=== PATIENT | female | born 1945 | race Caucasian/White ===

== ENCOUNTER 2017-07-22 10:05 | Emergency (ER) | payer MEDICARE ==
[2017-07-22] MEDS ORDERED: Morphine 4 MG/ML VIAL ONE (10:35)
--- NOTE | 2017-07-22 10:39 | RAD ---
PROCEDURE: CHEST RADIOGRAPH, 1 VIEW HISTORY: epigastric pain COMPARISON: Comparison made with chest radiograph dated 06/30/2013 FINDINGS: LUNGS: Poor inspiration with low lung volumes, minor crowded bronchovascular markings and mild bibasilar atelectasis. PLEURA: No pneumothorax or pleural fluid seen. CARDIOVASCULAR: Cardiomegaly. Aorta is ectatic and uncoiled. OSSEOUS STRUCTURES: No significant abnormalities. VISUALIZED UPPER ABDOMEN: Normal. OTHER FINDINGS: None. IMPRESSION: Poor inspiration with low lung volumes, minor crowded bronchovascular markings and mild bibasilar atelectasis.. Cardiomegaly. Ectatic uncoiled aorta.
[2017-07-22 10:53] LABS: BASO % 0.3 % (0.0-2.0); EOS % 0.7 % (0.0-4.0); HEMATOCRIT 44.2 % (34.0-47.0); LYMPH # 1.5 K/uL (1.0-4.3); LYMPH % 35.2 % (20.0-40.0); MEAN CELL VOLUME 88.1 fL (81.0-99.0); MEAN CORPUSCULAR HEMOGLOBIN 29.6 pg (27.0-31.0); MEAN CORPUSCULAR HGB CONC 33.6 g/dL (33.0-37.0); MEAN PLATELET VOLUME 9.6 fL (7.2-11.7); MONO # 0.4 K/uL (0.0-0.8); NRBC % 0.2 % (0.0-2.0); RED CELL DISTRIBUTION WIDTH 13.8 % (11.5-14.5); WHITE BLOOD COUNT 4.2 K/uL (4.8-10.8)
[2017-07-22 11:09] LABS: CHLORIDE 101 mmol/L (98-107); SODIUM 140 mmol/L (132-148)
[2017-07-22 11:10] LABS: POTASSIUM 3.6 mmol/L (3.6-5.2)
[2017-07-22 11:12] LABS: ALB/GLOB RATIO 1.1 (1.0-2.1); ALKALINE PHOSPHATASE 65 U/L (38-126); ALT/SGPT 32 U/L (9-52); AST/SGOT 25 U/L (14-36); BILIRUBIN,TOTAL 0.8 mg/dL (0.2-1.3); BLOOD UREA NITROGEN 9 mg/dL (7-17); CALCIUM 9.4 mg/dl (8.6-10.4); CARBON DIOXIDE 24 mmol/L (22-30); GFR AFRICAN-AMERICAN > 60; GLUCOSE,RANDOM 114 mg/dL (65-105); TOTAL PROTEIN 7.3 g/dL (6.3-8.3)
--- NOTE | 2017-07-22 11:28 | C.PDOC ---
History Of Present Illness 72 year old female brought to the ED by ALS with complaints of intermittent, sharp and burning epigastric pain for two days. Patient also notes nausea, diarrhea, polyuria, and tingling pain shooting down the right arm. As per EMS, she has PVCs in the field. Patient denies vomiting, fever, extremity weakness, chest pain, shortness of breath, headache, dizziness, or dysuria. Time Seen by Provider: 07/22/17 10:15 Chief Complaint (Nursing): Abdominal Pain History Per: Patient, EMS, Other History/Exam Limitations: no limitations Onset/Duration Of Symptoms: Days (2 days ), Intermittent Episodes Current Symptoms Are (Timing): Still Present Severity: Mild Location Of Pain/Discomfort: Epigastric Radiation Of Pain To:: None Quality Of Discomfort: Sharp, Burning Associated Symptoms: Nausea, Diarrhea, Other (polyuria ). denies: Fever, Chills , Vomiting Past Medical History Reviewed: Historical Data, Nursing Documentation, Vital Signs Vital Signs: Last Vital Signs Temp 97.6 F 07/22/17 15:24 Pulse 73 07/22/17 15:24 Resp 20 07/22/17 15:24 BP 119/77 07/22/17 15:24 Pulse Ox 96 07/22/17 15:24 - Medical History PMH: HTN, Hypercholesterolemia Surgical History: Cholecystectomy - [facility] Procedures TETANUS TOXOID ADMINIST (12/31/13) Family History: States: Other Other Family History: noncontributory - Social History Hx Tobacco Use: No Hx Alcohol Use: No Hx Substance Use: No - Immunization History Hx Tetanus Toxoid Vaccination: No Hx Influenza Vaccination: No (UNKNOWN) Hx Pneumococcal Vaccination: No Review Of Systems Except As Marked, All Systems Reviewed And Found Negative. Constitutional: Negative for: Fever, Chills Cardiovascular: Negative for: Chest Pain, Palpitations Respiratory: Negative for: Cough, Shortness of Breath Gastrointestinal: Positive for: Nausea, Abdominal Pain, Diarrhea. Negative for : Vomiting Genitourinary: Positive for: Other (Polyuria ). Negative for: Dysuria Neurological: Positive for: Other (tingling sensation down right arm ). Negative for: Weakness, Headache, Dizziness Physical Exam - Physical Exam Appears: Non-toxic, In Acute Distress (in mild pain ), Other (appears mildly anxious ) Skin: Warm, Dry, No Diaphoretic Eye(s): bilateral: Normal Inspection Oral Mucosa: Moist Neck: Supple Chest: Symmetrical Cardiovascular: Rhythm Irregular (occasionally irregular ) Respiratory: Normal Breath Sounds, No Rales, No Rhonchi, No Wheezing Gastrointestinal/Abdominal: Bowel Sounds, Soft, Tenderness (epigastric tenderness to palpation), No Distention, No Guarding, No Rebound, Other ((-) Delong's) Back: No CVA Tenderness Extremity: Normal ROM, No Tenderness, No Pedal Edema, No Calf Tenderness, Capillary Refill (< 2 sec all digits ), No Deformity, No Swelling Neurological/Psych: Oriented x3, Normal Speech, Normal Cognition, Normal Cranial Nerves, No Cerebellar Signs, Normal Motor, Normal Sensation ED Course And Treatment - Laboratory Results Result Diagrams: 07/22/17 10:32 07/22/17 10:32 ECG: Interpreted By Me, Viewed By Me ECG Rhythm: Sinus Rhythm ECG Interpretation: No Acute Changes Interpretation Of ECG: Sinus Ryhthm 84bpm, occasional PACs. Left axis deviation , no acute ST wave changes. Rate From EC O2 Sat by Pulse Oximetry: 97 (room air ) Pulse Ox Interpretation: Normal - Radiology CXR Interpretation: Yes: Other (Impression:Poor inspiration with low lung volumes, minor crowded bronchovascular markings and mild bibasilar atelectasis. Cardiomegaly. Ectatic uncoiled aorta. ) - Other Rad CXR X-Ray: Viewed By Me, Read By Radiologist Interpretation: Accession No. : [id number]. Patient Name / ID : DOM GUARDADO / [id number]. Exam Date : 07/22/2017 10:28:07 ( Approved ). Study Comment : Sex / Age : F / 72Y. Creator : Arben Narayanan MD. Dictator : Arben Narayanan MD. Business Banking Representative : Mold Car Pusher : Arben Narayanan MD. Approver2 : Report Date : 07/22/2017 10:37:58. My Comment : . PROCEDURE: CHEST RADIOGRAPH, 1 VIEW. HISTORY: epigastric pain. COMPARISON: Comparison made with chest radiograph dated 06/30/2013. FINDINGS: LUNGS: Poor inspiration with low lung volumes, minor crowded bronchovascular markings and mild bibasilar atelectasis. PLEURA: No pneumothorax or pleural fluid seen. CARDIOVASCULAR: Cardiomegaly. Aorta is ectatic and uncoiled. OSSEOUS STRUCTURES: No significant abnormalities. VISUALIZED UPPER ABDOMEN: Normal. OTHER FINDINGS: None. IMPRESSION: Poor inspiration with low lung volumes, minor crowded bronchovascular markings and mild bibasilar atelectasis.. Cardiomegaly. Ectatic uncoiled aorta. - CT Scan/US ct abd/pelvis Other Rad Studies (CT/US): Read By Radiologist, Radiology Report Reviewed CT/US Interpretation: Accession No. : [id number]. Patient Name / ID : DOM GUARDADO / [id number]. Exam Date : 07/22/2017 13:47:00 ( Approved ). Study Comment : Sex / Age : F / 72Y. Creator : Pretty Lane MD. Dictator : Business Banking Representative : Mold Car Pusher : Pretty Lane MD. Approver2 : Report Date : 07/22/2017 14:19:04. My Comment : . PROCEDURE: CT Abdomen and Pelvis with contrast. HISTORY: ABD PAIN, DIARRHEA. COMPARISON: CT abdomen and pelvis with contrast performed 06/30/13. TECHNIQUE: Contrast dose: 100 mL Visipaque 320. Radiation dose: Total exam DLP = 711.59 mGy-cm. This CT exam was performed using one or more of the following dose reduction techniques: Automated exposure control, adjustment of the mA and/or kV according to patient size, and/or use of iterative reconstruction technique. FINDINGS: LOWER THORAX: Bibasilar atelectasis. No visible pleural effusion or pneumothorax. Partially imaged cardiomegaly. Small hiatal hernia. LIVER: Hypoattenuation of the liver compatible with hepatic steatosis. GALLBLADDER AND BILE DUCTS: Cholecystectomy. PANCREAS: Unremarkable. SPLEEN: Unremarkable. ADRENALS: Unremarkable. KIDNEYS AND URETERS: The kidneys enhance symmetrically. No hydronephrosis or obstructing calculus identified. VASCULATURE: Scattered atherosclerotic calcifications of the aorta and branches. No aortic aneurysm. BOWEL: Stomach is nondistended. Lack of oral contrast limits evaluation for bowel pathology. Abnormal small bowel wall thickening involving portions of the duodenum and proximal jejunum. Correlate clinically for infectious or inflammatory etiologies. Bowel loops appear within normal limits of caliber without evidence of obstruction. APPENDIX: The appendix appears within normal limits of caliber. No secondary signs of acute appendicitis. PERITONEUM: No significant free fluid. No definite free air. LYMPH NODES: No bulky adenopathy. BLADDER: Thick-walled urinary bladder may be exaggerated by under distension. REPRODUCTIVE: Uterus is present. BONES: Degenerative changes of the spine. OTHER FINDINGS: None. IMPRESSION: Abnormal small bowel wall thickening involving portions of the duodenum and proximal jejunum. Correlate clinically for infectious or inflammatory etiologies. Hepatic steatosis. Cholecystectomy. Partially imaged cardiomegaly. Additional findings as above. Progress Note: Blood work, EKG, UA, CXr and CT abd/pelvis ordered and reviewed. Patient given IV Morphine, IV zofran. Reevaluation Time: 15:00 Reassessment Condition: Improved (On reassessment, patient is resting comfortably and states she is feeling better and wants to go home. On exam, abdomen is soft and nontender. CT scan shows some thickening of duodenum/ proximal jejunum. In light of pain and diarrhea, will treat as infectious with Cipro and Flagyl. Patient also given Rxs for zofran and pepcid. She denies CP/ SOB/palpitations, is well appearing, with normal vitals. Patient instructed to follow up with PMD/clinic in 1-2 days, and understands she should return to ED if symptoms worsen.) Disposition Counseled Patient/Family Regarding: Studies Performed, Diagnosis, Need For Followup, Rx Given - Disposition Referrals: Ross Barker MD [Staff Provider] - Renaldo Miller MD [Staff Provider] - Disposition: HOME/ ROUTINE Disposition Time: 15:00 Condition: STABLE Additional Instructions: SEGUIMIENTO CON KAUFMAN DOCTOR EN 1-2 NUNN, Y CON CARDIOLOGA DENTRO DE 1 SEMANA UTILICE MINA MEDIDAS DE LA HIPERTENSIN CADA DIARIO DEVUELVA A LA KRISTA DE EMERGENCIA SI LOS SNTOMAS EMPEORARAN Prescriptions: Ciprofloxacin [Cipro] 1 tab PO BID #14 tab Famotidine [Pepcid] 20 mg PO BID PRN #15 tab PRN Reason: abdominal metroNIDAZOLE [Flagyl] 500 mg PO TID #21 tab Ondansetron [Zofran Odt] 4 mg PO Q8 PRN #10 odt PRN Reason: Nausea/Vomiting Instructions: Acute Diarrhea (ED) Forms: [employer] (Sami) - POA Present On Arrival: None - Clinical Impression Clinical Impression: Diarrhea, Abdominal pain, Duodenitis - Scribe Statement The provider has reviewed the documentation as recorded by the Scribe Laura Santiago All medical record entries made by the Scribe were at my direction and personally dictated by me. I have reviewed the chart and agree that the record accurately reflects my personal performance of the history, physical exam, medical decision making, and the department course for this patient. I have also personally directed, reviewed, and agree with the discharge instructions and disposition.
[2017-07-22 12:37] LABS: RBC URINE < 1 /hpf (0-3); URINE BILIRUBIN NEGATIVE (NEGATIVE); URINE BLOOD NEGATIVE (NEGATIVE); URINE COLOR Yellow (YELLOW); URINE GLUCOSE (UA) NORMAL (Normal); URINE KETONE NEGATIVE (NEGATIVE); URINE LEUKOCYTE ESTERASE NEG Leu/uL (Negative); URINE PROTEIN NEGATIVE (NEGATIVE); URINE UROBILINOGEN NORMAL mg/dL (0.2-1.0); WBC URINE 2 /hpf (0-5)
[2017-07-22] MEDS ORDERED: Iodixanol 320 MG/ML 100 ML BOTTLE IV ONE (13:40)
--- NOTE | 2017-07-22 14:20 | CT ---
PROCEDURE: CT Abdomen and Pelvis with contrast HISTORY: ABD PAIN, DIARRHEA COMPARISON: CT abdomen and pelvis with contrast performed 06/30/13 TECHNIQUE: Contrast dose: 100 mL Visipaque 320 Radiation dose: Total exam DLP = 711.59 mGy-cm. This CT exam was performed using one or more of the following dose reduction techniques: Automated exposure control, adjustment of the mA and/or kV according to patient size, and/or use of iterative reconstruction technique. FINDINGS: LOWER THORAX: Bibasilar atelectasis. No visible pleural effusion or pneumothorax. Partially imaged cardiomegaly. Small hiatal hernia. LIVER: Hypoattenuation of the liver compatible with hepatic steatosis. GALLBLADDER AND BILE DUCTS: Cholecystectomy. PANCREAS: Unremarkable. SPLEEN: Unremarkable. ADRENALS: Unremarkable. KIDNEYS AND URETERS: The kidneys enhance symmetrically. No hydronephrosis or obstructing calculus identified. VASCULATURE: Scattered atherosclerotic calcifications of the aorta and branches. No aortic aneurysm. BOWEL: Stomach is nondistended. Lack of oral contrast limits evaluation for bowel pathology. Abnormal small bowel wall thickening involving portions of the duodenum and proximal jejunum. Correlate clinically for infectious or inflammatory etiologies. Bowel loops appear within normal limits of caliber without evidence of obstruction. APPENDIX: The appendix appears within normal limits of caliber. No secondary signs of acute appendicitis. PERITONEUM: No significant free fluid. No definite free air. LYMPH NODES: No bulky adenopathy. BLADDER: Thick-walled urinary bladder may be exaggerated by under distension. REPRODUCTIVE: Uterus is present. BONES: Degenerative changes of the spine. OTHER FINDINGS: None. IMPRESSION: Abnormal small bowel wall thickening involving portions of the duodenum and proximal jejunum. Correlate clinically for infectious or inflammatory etiologies. Hepatic steatosis. Cholecystectomy. Partially imaged cardiomegaly. Additional findings as above.
[2017-07-22 15:25] VITALS: BP 119/77; PULSE 73; RESP 20; TEMP 97.6
--- NOTE | 2017-07-24 11:47 | CARD ---
APPROVED REPORT EKG Measurement Heart [id number] <Conclusion> Sinus rhythm with frequent and consecutive premature ventricular complexes and premature atrial complexes Possible Left atrial enlargement Left ventricular hypertrophy Prolonged QT Abnormal ECG
[2017-07-26 11:12] VITALS: O2SAT 97
== END 2017-07-22 15:26 | disposition home or self-care (01) ==
LOC: C.ER 10:05
DX: K29.80 Duodenitis without bleeding (principal); R19.7 Diarrhea, unspecified; R10.13 Epigastric pain; I10 Essential (primary) hypertension; E78.00 Pure hypercholesterolemia, unspecified
CPT/HCPCS: 71010; 74177; 80053; 81001; 82550; 82553; 83880; 84484; 85025; 85610; 85730; 87086; 93005; 96374; 96375; 99284; J2270; J2405; J2765; Q9967

== ENCOUNTER 2017-12-04 08:56 | Day surgery (SDC) | payer MEDICARE ==
[2017-12-04 10:01] LABS: HEMOGLOBIN 15.3 g/dL (11.0-16.0); MEAN CORPUSCULAR HEMOGLOBIN 30.3 pg (27.0-31.0); MEAN CORPUSCULAR HGB CONC 33.5 g/dL (33.0-37.0); MEAN PLATELET VOLUME 9.7 fL (7.2-11.7); RBC 5.05 Mil/uL (3.80-5.20); RED CELL DISTRIBUTION WIDTH 13.6 % (11.5-14.5); WHITE BLOOD COUNT 5.8 K/uL (4.8-10.8)
[2017-12-04 10:05] LABS: MEAN CELL VOLUME 90.5 fL (81.0-99.0)
[2017-12-04 10:08] LABS: PROTHROMBIN TIME 10.8 SECONDS (9.7-12.2)
[2017-12-04 11:20] LABS: BLOOD UREA NITROGEN 20 mg/dL (7-17); CALCIUM 8.5 mg/dl (8.6-10.4); GFR AFRICAN-AMERICAN > 60; GFR NON-AFRICAN AMERICAN > 60
[2017-12-04] MEDS ORDERED: DiphenhydrAMINE 50 mg/ml Inj ONE (11:38)
[2017-12-04] MEDS ORDERED: Midazolam 2 MG/2 ML VIAL ONE (11:38)
[2017-12-04] MEDS ORDERED: Iodixanol 320 MG/ML 100 ML BOTTLE IV ONE (11:39)
--- NOTE | 2017-12-04 12:41 | CATH ---
APPROVED REPORT HISTORY without dialysis, hypertension, dyslipidemia. INDICATION The indication(s) include : positive stress test, stable angina . CASE TECHNIQUE The patient was brought electively to the Cardiac Catheterization Laboratory in a fasting state and was prepped and draped in a sterile Hydrochloride subcutaneous anesthesia. A 6 fr sheath was inserted using coronary diagnostic catheters. The left coronary system was accessed and visualized with a Diagnostic catheter. The right coronary system was accessed and visualized with a Diagnostic catheter. The left ventricle was accessed and visualized with a Diagnostic catheter. Left ventricular/Aortic Valve gradient assessed on pullback. Left ventriculogram was performed in MADRIGAL projection. Hemostasis was obtained with manual pressure following sheath removal without any complications. The patient tolerated the procedure well and there were no complications associated with the procedure. Vessel Analysis The patient's coronary anatomy is right dominant. The left main coronary artery is a medium size vessel without stenosis. The left main bifurcates to the left anterior descending and circumflex. The left anterior descending artery is a medium size vessel with stenosis. There is a 80% stenosis in the proximal segment. The first diagonal branch is a medium size vessel . The circumflex artery is a medium size vessel . The first obtuse marginal branch is a medium size vessel . There is a 60% stenosis . The right coronary artery is a medium size vessel . The right posterolateral branch is a medium size vessel . There is a 70% stenosis . Left Ventricle The left ventricle is dilated in size with diffuse decrease in contractility. The left ventricular ejection fraction is estimated to be 30%. There was no gradient across the aortic valve upon pullback. Conclusion 80% stenosis of the proximal elft anterior descending artery 70% stenosis of the first obtuse marginal branch of the left circumflex in its mid segment 70% stenosis of the osteal right posterolateral The left ventricle is diffuse hypokinetic with an estimated ejection fraction of 30% The LV end diastolic pressures are elevated No significant rtransaortic gradient Recommendations PCI
[2017-12-04] MEDS ORDERED: Potassium Chloride 20 mEq ER Tab PO ONE (14:12)
== END 2017-12-04 19:42 | disposition home or self-care (01) ==
LOC: C.CATHLAB 08:56
PROVIDERS: ATTEND Internal Medicine
DX: I25.118 Atherosclerotic heart disease of native coronary artery with other forms of angina pectoris (principal); I10 Essential (primary) hypertension; E78.5 Hyperlipidemia, unspecified
CPT/HCPCS: 36415; 80048; 85027; 85610; 85730; 93458; J1644; J2250; Q9967

== ENCOUNTER 2018-03-02 12:39 | Inpatient (IN) | payer MEDICARE ==
[2018-03-02 14:06] LABS: BASO % 0.3 % (0.0-2.0); EOS % 0.8 % (0.0-4.0); HEMOGLOBIN 13.4 g/dL (11.0-16.0); LYMPH # 1.2 K/uL (1.0-4.3); LYMPH % 29.6 % (20.0-40.0); MEAN CELL VOLUME 89.3 fL (81.0-99.0); MEAN CORPUSCULAR HGB CONC 34.7 g/dL (33.0-37.0); MEAN PLATELET VOLUME 8.5 fL (7.2-11.7); MONO # 0.3 K/uL (0.0-0.8); MONO % 7.8 % (0.0-10.0); NEUT # 2.5 K/uL (1.8-7.0); NEUT % 61.5 % (50.0-75.0); RBC 4.34 Mil/uL (3.80-5.20); RED CELL DISTRIBUTION WIDTH 13.7 % (11.5-14.5); WHITE BLOOD COUNT 4.1 K/uL (4.8-10.8)
[2018-03-02 14:17] LABS: PROTHROMBIN TIME 11.3 SECONDS (9.7-12.2)
[2018-03-02 14:23] LABS: ALB/GLOB RATIO 1.4 (1.0-2.1); ALBUMIN 4.1 g/dL (3.5-5.0); ALT/SGPT 23 U/L (9-52); AST/SGOT 25 U/L (14-36); BLOOD UREA NITROGEN 12 mg/dL (7-17); CALCIUM 8.9 mg/dl (8.6-10.4); GFR AFRICAN-AMERICAN > 60; GFR NON-AFRICAN AMERICAN > 60
[2018-03-02 14:32] LABS: B-TYPE NATRIURETIC PEPTIDE 1760 pg/mL (0-900); CK-MB 0.89 ng/mL (0.0-3.38)
--- NOTE | 2018-03-02 15:00 | C.PDOC ---
Time Seen by Provider: 03/02/18 13:23 Chief Complaint (Nursing): Chest Pain History Per: Patient, Family Onset/Duration Of Symptoms: Hrs (this morning) Current Symptoms Are (Timing): Better Severity: Moderate Associated Symptoms: Dyspnea Alleviating Factors: None Additional History Per: Prior Records Past Medical History Reviewed: Historical Data, Nursing Documentation, Vital Signs Vital Signs: Last Vital Signs Temp 97.9 F 03/02/18 12:49 Pulse 47 L 03/02/18 13:54 Resp 17 03/02/18 13:54 BP 142/67 03/02/18 14:17 Pulse Ox 100 03/02/18 15:05 - Medical History PMH: Cardia Arrhythmia (PVC), CHF, Gall Bladder Disease, HTN, Hypercholesterolemia Surgical History: Cholecystectomy, Coronary Stent (2 months ago?) - [facility] Procedures TETANUS TOXOID ADMINIST (12/31/13) Family History: States: Unknown Family Hx - Social History Hx Tobacco Use: No Hx Alcohol Use: No Hx Substance Use: No - Immunization History Hx Tetanus Toxoid Vaccination: No Hx Influenza Vaccination: No Hx Pneumococcal Vaccination: No Review Of Systems Except As Marked, All Systems Reviewed And Found Negative. Constitutional: Negative for: Fever Cardiovascular: Positive for: Chest Pain Respiratory: Positive for: Shortness of Breath. Negative for: Cough Gastrointestinal: Positive for: Constipation. Negative for: Vomiting, Abdominal Pain Genitourinary: Negative for: Dysuria Musculoskeletal: Negative for: Neck Pain, Back Pain Skin: Negative for: Rash Neurological: Negative for: Weakness, Numbness Physical Exam - Physical Exam Appears: No Acute Distress, Chronically Ill Skin: Normal Color, Warm, Dry, No Rash Head: Atraumatic, Normacephalic Eye(s): bilateral: Normal Inspection, PERRL, EOMI Neck: Normal ROM, Supple Cardiovascular: Rhythm Regular Respiratory: Normal Breath Sounds, No Accessory Muscle Use Gastrointestinal/Abdominal: Soft, No Tenderness Back: No CVA Tenderness Extremity: Normal ROM, No Calf Tenderness Neurological/Psych: Oriented x3, Normal Motor, Normal Sensation ED Course And Treatment - Laboratory Results Result Diagrams: 03/02/18 14:02 03/02/18 14:02 Lab Interpretation: No Acute Changes ECG: Interpreted By Me, Viewed By Me ECG Rhythm: Sinus Rhythm, Nonspecific Changes Interpretation Of ECG: LVH with strain pattern. Rate From EC O2 Sat by Pulse Oximetry: 100 Pulse Ox Interpretation: Normal - Radiology CXR: Interpreted by Me, Viewed By Me CXR Interpretation: Yes: Cardiomegaly Progress Note: Chest pain resolved in the ED. - Physician Consult Information Physician Contacted: Renaldo Miller (Cardiology) Outcome Of Conversation: He will consult. Progress - Interventions Interventions:: Observation, Oxygen - Medications Administered Oral: Aspirin (Pt took at home prior to arrival) - Data Reviewed Data Reviewed: Lab, Diagnostic imaging, EKG, Old records - Patient Status Patient status: Mostly improved - Continuity of Care Discussed patient case with:: Patient, Family-HIPPA compliant, ED Nurse, Covering for PMD Discussed pt. case with data warehouse consultant/specialty: Cardiology - Patient Plan Patient Plan: Admission, Telemetry Disposition Discussed With : Ag Millan Comment: He accepted pt on hospitalist service. Doctor Will See Patient In The: Hospital Counseled Patient/Family Regarding: Studies Performed, Diagnosis - Disposition Disposition: HOSPITALIZED Disposition Time: 16:00 Condition: FAIR - Clinical Impression Clinical Impression: Chest pain, CAD (coronary artery disease)
--- NOTE | 2018-03-02 16:03 | CP.PCM.HP ---
<RemiKarli patel DO - Last Filed: 03/02/18 16:50> History of Present Illness - History of Present Illness History of Present Illness: CC: "My chest hurt this morning" Patient is a 72 year old female with PMHx significant for CAD with stents and HTN who presents to the ED with history of chest pain which began this morning. She states she had pain and tingling in her left arm at the same time as the chest pain. She also reports shortness of breath and left leg tingling at the time of the chest pain. Patient states all of her symptoms resolved en route to ED. Patient reports taking only a baby aspirin this morning. She also reports occasional dizziness and headache but denies fever, chills, palpitations , cough. Patient denies sick contacts. Patient reports stents were placed two months ago but she is unsure of how many stents or what medication she is taking aside from Losartan and aspirin 81mg. Patient also reports occasional RLQ abdominal pain that accompanies constipation. PMD: Dr. Ross Barker Cardio: Dr. Miller PMHx: HTN, HLD, CAD, PVCs (per EMS report in 06/2017) PSHx: cholecystectomy, stents at [facility] two months ago FamHx: mother with [place] at age 85 SocialHx: denies ever smoking, denies alcohol, drugs Meds: Losartan 100mg, aspirin 81mg. Patient fills prescriptions at [facility] which is closed today. Will call tomorrow to verify prescriptions ([phone]) Allergies: denies Present on Admission - Present on Admission Any Indicators Present on Admission: No Review of Systems - Constitutional Constitutional: absent: Chills, Fever, Weakness - EENT Eyes: absent: Change in Vision Ears: Dizziness - Cardiovascular Cardiovascular: Chest Pain, Dyspnea. absent: Chest Pain at Rest, Diaphoresis, Leg Edema, Orthopnea, Palpitations, Rapid Heart Rate - Respiratory Respiratory: Dyspnea. absent: Cough, Hemoptysis - Gastrointestinal Gastrointestinal: Constipation. absent: Diarrhea, Nausea, Vomiting - Genitourinary Genitourinary: absent: Difficulty Urinating, Dysuria - Musculoskeletal Musculoskeletal: Tingling. absent: Back Pain - Integumentary Integumentary: absent: Pruritus, Rash - Neurological Neurological: Headaches, Tingling Past Patient History - Past Social History Smoking Status: Never Smoked - CARDIAC Hx Cardia Arrhythmia: Yes (PVC) Hx Congestive Heart Failure: Yes Hx Hypercholesterolemia: Yes Hx Hypertension: Yes - GASTROINTESTINAL Hx Gall Bladder Disease: Yes - PSYCHIATRIC Hx Substance Use: No - SURGICAL HISTORY Hx Cholecystectomy: Yes Hx Coronary Stent: Yes (2 months ago?) - ANESTHESIA Hx Anesthesia: Yes Hx Anesthesia Reactions: No Meds Allergies/Adverse Reactions: Allergies Allergy/AdvReac Type Severity Reaction Status Date / Time No Known Allergies Allergy Verified 03/02/18 12:50 Physical Exam - Constitutional Appears: Non-toxic, No Acute Distress - Head Exam Head Exam: ATRAUMATIC, NORMOCEPHALIC - Eye Exam Eye Exam: EOMI - ENT Exam ENT Exam: Mucous Membranes Moist - Respiratory Exam Respiratory Exam: Clear to Auscultation Bilateral, NORMAL BREATHING PATTERN. absent: Chest Wall Tenderness, Rales, Rhonchi, Wheezes - Cardiovascular Exam Cardiovascular Exam: +S1, +S2. absent: Tachycardia, Irregular Rhythm - GI/Abdominal Exam GI & Abdominal Exam: Normal Bowel Sounds, Soft, Tenderness (RLQ). absent: Distended, Firm, Guarding - Extremities Exam Extremities exam: Positive for: normal inspection. Negative for: calf tenderness, pedal edema - Neurological Exam Neurological exam: Alert, CN II-XII Intact Additional comments: normal sensation - Psychiatric Exam Psychiatric exam: Normal Affect - Skin Skin Exam: Warm Results - Vital Signs Recent Vital Signs: Last Vital Signs Temp 97.9 F 03/02/18 12:49 Pulse 47 L 03/02/18 13:54 Resp 17 03/02/18 13:54 BP 142/67 03/02/18 14:17 Pulse Ox 100 03/02/18 16:00 - Labs Result Diagrams: 03/02/18 14:02 03/02/18 14:02 Labs: Laboratory Results - last 24 hr 03/02/18 03/02/18 03/02/18 14:02 14:02 14:02 WBC 4.1 L RBC 4.34 Hgb 13.4 Hct 38.7 MCV 89.3 MCH 31.0 MCHC 34.7 RDW 13.7 Plt Count 185 MPV 8.5 Neut % (Auto) 61.5 Lymph % (Auto) 29.6 [place] % (Auto) 7.8 Eos % (Auto) 0.8 Baso % (Auto) 0.3 Neut # (Auto) 2.5 Lymph # (Auto) 1.2 [place] # (Auto) 0.3 Eos # (Auto) 0.0 Baso # (Auto) 0.0 PT 11.3 INR 1.0 APTT 30 Sodium 141 Potassium 3.6 Chloride 100 Carbon Dioxide 27 Anion Gap 18 BUN 12 Creatinine 0.7 Est GFR ( Amer) > 60 Est GFR (Non-Af Amer) > 60 Random Glucose 88 Calcium 8.9 Total Bilirubin 1.0 AST 25 ALT 23 Alkaline Phosphatase 53 Total Creatine Kinase 61 CK-MB (Mass) 0.89 Troponin I < 0.0120 NT-Pro-B Natriuret Pep 1760 H Total Protein 7.1 Albumin 4.1 Globulin 3.0 Albumin/Globulin Ratio 1.4 Assessment & Plan - Assessment and Plan (Free Text) Assessment: Chest pain, r/o ACS chest pain resolved first troponin negative, will continue to check two more times with EKG EKG in ER shows LVH, sinus rhythm at 69bpm will monitor on telemetry Dr. Miller, cardiology, consulted-help appreciated CAD patient had cardiac catheterization 11/2017 at [facility] with Dr. Childs due to history of positive stress test. Cath report: left ventricle is dilated in size with diffuse decrease in contractility. LVEF of 30%, 80% stenosis of proximal left anterior descending artery, 70% stenosis first obtuse marginal branch of the left circumflex in its med segment, 70% stenosis of osteal right posterolateral, left ventricle is diffuse hypokinetic with an estimated ejection fraction of 30%, LV end diastolic pressure are elevated. Recommend PCI. s/p stenting at [facility] [place] with Dr. Miller will start patient on Plavix 75mg, continue aspirin 81mg will continue losartan 100mg due to bradycardia, will not start coreg at this time will call patient's pharmacy tomorrow to verify home medications Elevated BNP BNP 1760 on admission cardiac cath report from 11/2017 shows EF 30% patient on ARB, not starting coreg due to bradycardia HTN will continue losartan 100mg will verify patient's other medications with her pharmacy tomorrow continue to monitor HLD will check fasting lipid panel patient states she has been off medication for 5-6 months will start crestor 5mg Prophylactic Measure heparin 5000u sc q8h protonix 40mg PO daily miralax daily prn Case discussed with Dr. Millan <Ag Millan H - Last Filed: 03/02/18 18:55> Results - Vital Signs Recent Vital Signs: Last Vital Signs Temp 98.6 F 03/02/18 17:37 Pulse 76 03/02/18 17:37 Resp 20 03/02/18 17:37 BP 135/86 03/02/18 17:37 Pulse Ox 95 03/02/18 17:37 - Labs Result Diagrams: 03/02/18 14:02 03/02/18 14:02 Labs: Laboratory Results - last 24 hr 03/02/18 03/02/18 03/02/18 14:02 14:02 14:02 WBC 4.1 L RBC 4.34 Hgb 13.4 Hct 38.7 MCV 89.3 MCH 31.0 MCHC 34.7 RDW 13.7 Plt Count 185 MPV 8.5 Neut % (Auto) 61.5 Lymph % (Auto) 29.6 [place] % (Auto) 7.8 Eos % (Auto) 0.8 Baso % (Auto) 0.3 Neut # (Auto) 2.5 Lymph # (Auto) 1.2 [place] # (Auto) 0.3 Eos # (Auto) 0.0 Baso # (Auto) 0.0 PT 11.3 INR 1.0 APTT 30 Sodium 141 Potassium 3.6 Chloride 100 Carbon Dioxide 27 Anion Gap 18 BUN 12 Creatinine 0.7 Est GFR ( Amer) > 60 Est GFR (Non-Af Amer) > 60 Random Glucose 88 Calcium 8.9 Total Bilirubin 1.0 AST 25 ALT 23 Alkaline Phosphatase 53 Total Creatine Kinase 61 CK-MB (Mass) 0.89 Troponin I < 0.0120 NT-Pro-B Natriuret Pep 1760 H Total Protein 7.1 Albumin 4.1 Globulin 3.0 Albumin/Globulin Ratio 1.4 Attending/Attestation - Attestation I have personally seen and examined this patient.: Yes I have fully participated in the care of the patient.: Yes I have reviewed all pertinent clinical information: Yes Notes (Text): 03/02/18 18:52 Medical attending: Patient was seen and examined by me. Agree with the above note by the resident The patient has had recent procedure stenting at [facility] [place]. She did not readily remember her medication and her pharmacy is not open today. By the time we saw the patient in the ER, her chest pain had resolved. Per ER discussion they said that they were just about to give morphine or nitro when the C/P resolved. For the time being will place on statin, Plavix, ASA as well as Losartan We will check additional troponins and also the patient will be seen by her shipping clerk crating as well. Thank you Ag Millan
[2018-03-02] MEDS ORDERED: POLYETHYLENE GLYCOL 3350 17 GM/Dose PACKET PO PRN (16:40)
--- NOTE | 2018-03-02 17:03 | RAD ---
Chest x-ray single frontal view History: Chest pain. Shortness of breath. Comparison: 07/22/2017 Findings: Mild venous congestion. Patchy increased markings in the right infrahilar region and left lung base. Tortuous ectatic aorta. Cardiomegaly. Degenerative changes in the spine and shoulders. Impression: Mild venous congestion. Patchy increased markings in the right infrahilar region and left lung base. Tortuous ectatic aorta. Cardiomegaly.
[2018-03-02 20:44] LABS: CK-MB 0.83 ng/mL (0.0-3.38); TROPONIN I 0.016 ng/mL (0.00-0.120)
--- NOTE | 2018-03-02 22:23 | CP.PCM.CON ---
History of Present Illness - History of Present Illness History of Present Illness: Chart and imaging reviewed patient seen at bedside 'Interviewed and examined Admitted with chest pain in the precordial region;denied syncope edema dyspnea palpitations Systems review: constipation Past medical Hypertension Hyperlipidemia coronary artery disease Admitted in ; cath showed circumflex disease' transferred to [facility] and had a stent there; EF was 30% Past surgery: cholecystectomy Denied smoking Medications reviewed: losartan and aspirin Exam No distress Normal venous pressures Clear lungs Normal heart sounds No edema DP +=+ Alert oriented No defecit Labs reviewed; troponin 0.02 EKG: sinus rhythm; APC LVH CXR: unremarkable Past Patient History - Past Social History Smoking Status: Never Smoked - CARDIAC Hx Cardia Arrhythmia: Yes (PVC) Hx Congestive Heart Failure: Yes Hx Hypercholesterolemia: Yes Hx Hypertension: Yes - GASTROINTESTINAL Hx Gall Bladder Disease: Yes - PSYCHIATRIC Hx Substance Use: No - SURGICAL HISTORY Hx Cholecystectomy: Yes Hx Coronary Stent: Yes (2 months ago?) - ANESTHESIA Hx Anesthesia: Yes Hx Anesthesia Reactions: No Meds Allergies/Adverse Reactions: Allergies Allergy/AdvReac Type Severity Reaction Status Date / Time No Known Allergies Allergy Verified 03/02/18 12:50 - Medications Medications: Current Medications Aspirin (Aspirin Chewable) 81 mg PO DAILY [facility] Clopidogrel Bisulfate (Plavix) 75 mg PO DAILY [facility] Last Admin: 03/02/18 17:02 Dose: 75 mg Docusate Sodium (Colace) 100 mg PO DAILY [facility] Famotidine (Pepcid) 20 mg PO BID [facility] Last Admin: 03/02/18 17:48 Dose: 20 mg Heparin Sodium (Porcine) (Heparin) 5,000 units SC Q8 [facility] Last Admin: 03/02/18 21:45 Dose: 5,000 units Losartan Potassium (Cozaar) 100 mg PO DAILY [facility] Last Admin: 03/02/18 17:01 Dose: 100 mg Polyethylene Glycol (Miralax) 17 gm PO DAILY PRN PRN Reason: Constipation Rosuvastatin Calcium (Crestor) 5 mg PO HS [facility] Last Admin: 03/02/18 21:45 Dose: 5 mg Results - Vital Signs Recent Vital Signs: Last Vital Signs Temp 97.7 F 03/02/18 22:07 Pulse 44 L 03/02/18 22:07 Resp 18 03/02/18 22:07 BP 147/67 03/02/18 22:07 Pulse Ox 95 03/02/18 17:37 - Labs Result Diagrams: 03/02/18 14:02 03/02/18 14:02 Labs: Laboratory Results - last 24 hr 03/02/18 03/02/18 03/02/18 14:02 14:02 14:02 WBC 4.1 L RBC 4.34 Hgb 13.4 Hct 38.7 MCV 89.3 MCH 31.0 MCHC 34.7 RDW 13.7 Plt Count 185 MPV 8.5 Neut % (Auto) 61.5 Lymph % (Auto) 29.6 [place] % (Auto) 7.8 Eos % (Auto) 0.8 Baso % (Auto) 0.3 Neut # (Auto) 2.5 Lymph # (Auto) 1.2 [place] # (Auto) 0.3 Eos # (Auto) 0.0 Baso # (Auto) 0.0 PT 11.3 INR 1.0 APTT 30 Sodium 141 Potassium 3.6 Chloride 100 Carbon Dioxide 27 Anion Gap 18 BUN 12 Creatinine 0.7 Est GFR ( Amer) > 60 Est GFR (Non-Af Amer) > 60 Random Glucose 88 Calcium 8.9 Total Bilirubin 1.0 AST 25 ALT 23 Alkaline Phosphatase 53 Total Creatine Kinase 61 CK-MB (Mass) 0.89 Troponin I < 0.0120 NT-Pro-B Natriuret Pep 1760 H Total Protein 7.1 Albumin 4.1 Globulin 3.0 Albumin/Globulin Ratio 1.4 03/02/18 20:10 WBC RBC Hgb Hct MCV MCH MCHC RDW Plt Count MPV Neut % (Auto) Lymph % (Auto) [place] % (Auto) Eos % (Auto) Baso % (Auto) Neut # (Auto) Lymph # (Auto) [place] # (Auto) Eos # (Auto) Baso # (Auto) PT INR APTT Sodium Potassium Chloride Carbon Dioxide Anion Gap BUN Creatinine Est GFR ( Amer) Est GFR (Non-Af Amer) Random Glucose Calcium Total Bilirubin AST ALT Alkaline Phosphatase Total Creatine Kinase 62 CK-MB (Mass) 0.83 Troponin I 0.0160 NT-Pro-B Natriuret Pep Total Protein Albumin Globulin Albumin/Globulin Ratio Assessment & Plan - Assessment and Plan (Free Text) Assessment: Chest pain syndrome on a background of multiple vascular risk factors established vascular disease and ischemic cardiomyopathy No suggestion of instability Plan: Echo: limited for wall motion Aspirin plavix and beta caitlin and statin - Date & Time Date: 03/02/18 Time: 22:24
[2018-03-03 02:50] LABS: CK-MB 1.12 ng/mL (0.0-3.38)
[2018-03-03 02:52] LABS: TROPONIN I 0.024 ng/mL (0.00-0.120)
[2018-03-03 07:29] LABS: BASO % 0.3 % (0.0-2.0); EOS % 0.9 % (0.0-4.0); HEMOGLOBIN 13.2 g/dL (11.0-16.0); LYMPH # 1.6 K/uL (1.0-4.3); LYMPH % 31.4 % (20.0-40.0); MEAN CELL VOLUME 89.3 fL (81.0-99.0); MEAN CORPUSCULAR HGB CONC 34.7 g/dL (33.0-37.0); MEAN PLATELET VOLUME 9.1 fL (7.2-11.7); MONO # 0.4 K/uL (0.0-0.8); MONO % 7.7 % (0.0-10.0); NEUT # 3.1 K/uL (1.8-7.0); NEUT % 59.7 % (50.0-75.0); RBC 4.26 Mil/uL (3.80-5.20); RED CELL DISTRIBUTION WIDTH 13.8 % (11.5-14.5); WHITE BLOOD COUNT 5.2 K/uL (4.8-10.8)
[2018-03-03 07:59] LABS: ALB/GLOB RATIO 1.2 (1.0-2.1); ALBUMIN 3.5 g/dL (3.5-5.0); ALT/SGPT 24 U/L (9-52); AST/SGOT 32 U/L (14-36); BLOOD UREA NITROGEN 11 mg/dL (7-17); CALCIUM 9.1 mg/dl (8.6-10.4); GFR AFRICAN-AMERICAN > 60; GFR NON-AFRICAN AMERICAN > 60; HDL CHOLESTEROL 41 mg/dL (30-70)
[2018-03-03 08:09] LABS: LDL CHOLESTEROL 158 mg/dL (0-129)
[2018-03-03 09:10] LABS: T3 1.52 nmol/L (1.49-2.60)
--- NOTE | 2018-03-03 16:08 | CP.PCM.PN ---
<Tylor Mac - Last Filed: 03/03/18 15:59> Subjective - Date & Time of Evaluation Date of Evaluation: 03/03/18 Time of Evaluation: 15:59 - Subjective Subjective: Patient seen and examined at bedside. Doing well with no complaints at bedside. Denies any chest pain or SOB. Troponin is[place] overnight. Dr. Childs aware. Plans on cardiac cath tomorrow morning. Objective - Vital Signs/Intake and Output Vital Signs (last 24 hours): Temp Pulse Resp BP Pulse Ox 97.7 F 60 18 155/80 H 99 03/03/18 15:30 03/03/18 15:30 03/03/18 15:30 03/03/18 15:30 03/03/18 15:30 Intake and Output: 03/03/18 03/03/18 06:59 18:59 Intake Total 200 Balance 200 - Medications Medications: Current Medications Acetaminophen (Tylenol 325mg Tab) 650 mg PO Q6 PRN PRN Reason: Pain, Mild (1-3) Aspirin (Aspirin Chewable) 81 mg PO DAILY [facility] Last Admin: 03/03/18 09:45 Dose: 81 mg Clopidogrel Bisulfate (Plavix) 75 mg PO DAILY [facility] Last Admin: 03/03/18 09:45 Dose: 75 mg Docusate Sodium (Colace) 100 mg PO DAILY [facility] Last Admin: 03/03/18 09:45 Dose: 100 mg Famotidine (Pepcid) 20 mg PO BID [facility] Last Admin: 03/03/18 09:45 Dose: 20 mg Heparin Sodium (Porcine) (Heparin) 5,000 units SC Q8 [facility] Last Admin: 03/03/18 13:43 Dose: 5,000 units Losartan Potassium (Cozaar) 100 mg PO DAILY [facility] Last Admin: 03/03/18 09:44 Dose: 100 mg Polyethylene Glycol (Miralax) 17 gm PO DAILY PRN PRN Reason: Constipation Rosuvastatin Calcium (Crestor) 5 mg PO HS [facility] Last Admin: 03/02/18 21:45 Dose: 5 mg - Labs Labs: 03/03/18 07:22 03/03/18 07:22 PT 11.3 SECONDS (9.7-12.2) 03/02/18 14:02 INR 1.0 03/02/18 14:02 APTT 30 SECONDS (21-34) 03/02/18 14:02 - Constitutional Appears: Well - Head Exam Head Exam: ATRAUMATIC, NORMAL INSPECTION, NORMOCEPHALIC - Eye Exam Eye Exam: EOMI, Normal appearance, PERRL Pupil Exam: NORMAL ACCOMODATION, PERRL - ENT Exam ENT Exam: Mucous Membranes Moist, Normal Exam - Neck Exam Neck Exam: Full ROM, Normal Inspection. absent: Lymphadenopathy - Respiratory Exam Respiratory Exam: Clear to Ausculation Bilateral, NORMAL BREATHING PATTERN - Cardiovascular Exam Cardiovascular Exam: REGULAR RHYTHM, +S1, +S2. absent: Murmur - GI/Abdominal Exam GI & Abdominal Exam: Soft, Normal Bowel Sounds. absent: Tenderness - Rectal Exam Rectal Exam: NORMAL INSPECTION - Extremities Exam Extremities Exam: Full ROM, Normal Capillary Refill, Normal Inspection. absent : Joint Swelling, Pedal Edema - Back Exam Back Exam: NORMAL INSPECTION - Neurological Exam Neurological Exam: Alert, Awake, CN II-XII Intact, Normal Gait, Oriented x3 - Psychiatric Exam Psychiatric exam: Normal Affect, Normal Mood - Skin Skin Exam: Dry, Intact, Normal Color, Warm Assessment and Plan - Assessment and Plan (Free Text) Assessment: Chest pain, r/o ACS chest pain resolved Trops continue to rise. Dr. Childs aware. Will cath tomorrow EKG in ER shows LVH, sinus rhythm at 69bpm will monitor on telemetry CAD patient had cardiac catheterization 11/2017 at [facility] with Dr. Childs due to history of positive stress test. Cath report: left ventricle is dilated in size with diffuse decrease in contractility. LVEF of 30%, 80% stenosis of proximal left anterior descending artery, 70% stenosis first obtuse marginal branch of the left circumflex in its med segment, 70% stenosis of osteal right posterolateral, left ventricle is diffuse hypokinetic with an estimated ejection fraction of 30%, LV end diastolic pressure are elevated. Recommend PCI. s/p stenting at [facility] with Dr. Miller Plavix 75mg aspirin 81mg losartan 100mg due to bradycardia, will not start coreg at this time Elevated BNP BNP 1760 on admission cardiac cath report from 11/2017 shows EF 30% patient on ARB, not starting coreg due to bradycardia HTN losartan 100mg HLD crestor 5mg Prophylactic Measure Lovenox q12 miralax daily prn <Theo Landaverde - Last Filed: 03/05/18 14:30> Objective - Vital Signs/Intake and Output Vital Signs (last 24 hours): Temp Pulse Resp BP Pulse Ox 97.4 F L 70 20 131/70 96 03/05/18 07:00 03/05/18 11:42 03/05/18 07:00 03/05/18 07:00 03/05/18 11:42 - Medications Medications: Current Medications Aspirin (Aspirin Chewable) 81 mg PO DAILY [facility] Last Admin: 03/05/18 10:47 Dose: 81 mg Clopidogrel Bisulfate (Plavix) 75 mg PO DAILY [facility] Last Admin: 03/05/18 10:47 Dose: 75 mg Enoxaparin Sodium (Lovenox) 30 mg SC Q12 [facility] Last Admin: 03/05/18 10:46 Dose: 30 mg Losartan Potassium (Cozaar) 100 mg PO DAILY [facility] Last Admin: 03/04/18 10:28 Dose: 100 mg Polyethylene Glycol (Miralax) 17 gm PO DAILY PRN PRN Reason: Constipation Rosuvastatin Calcium (Crestor) 5 mg PO HS [facility] Last Admin: 03/04/18 23:01 Dose: 5 mg - Labs Labs: 03/04/18 07:21 03/04/18 07:21 PT 11.3 SECONDS (9.7-12.2) 03/02/18 14:02 INR 1.0 03/02/18 14:02 APTT 30 SECONDS (21-34) 03/02/18 14:02 Attending/Attestation - Attestation I have personally seen and examined this patient.: Yes I have fully participated in the care of the patient.: Yes I have reviewed all pertinent clinical information, including history, physical exam and plan: Yes Notes (Text): Seen and examined. patient denies chest pain 1.Chest pain, r/o ACS cath tomorrow patient had cardiac catheterization 11/2017 at [facility] with Dr. Childs due to history of positive stress test. stenting at [facility] with Dr. Miller Plavix 75mg aspirin 81mg losartan 100mg due to bradycardia, will not start coreg at this time 2.Elevated BNP 3.HTN 4.HLD D/w Resident.I agree with the documentation
[2018-03-03] MEDS: Enoxaparin 30 mg Syringe SC SCH (21:05)
[2018-03-04] MEDS ORDERED: Iodixanol 320 MG/ML 200 ML BOTTLE IV ONE (07:37)
[2018-03-04] MEDS ORDERED: Iodixanol 320 MG/ML 100 ML BOTTLE IV ONE (07:37)
[2018-03-04 07:41] LABS: BASO % 0.4 % (0.0-2.0); EOS # 0.1 K/uL (0.0-0.7); EOS % 3.8 % (0.0-4.0); HEMOGLOBIN 13.2 g/dL (11.0-16.0); LYMPH # 1.9 K/uL (1.0-4.3); LYMPH % 53.3 % (20.0-40.0); MEAN CELL VOLUME 89.4 fL (81.0-99.0); MEAN CORPUSCULAR HEMOGLOBIN 31.3 pg (27.0-31.0); MEAN PLATELET VOLUME 8.9 fL (7.2-11.7); MONO # 0.4 K/uL (0.0-0.8); MONO % 10.6 % (0.0-10.0); NEUT # 1.2 K/uL (1.8-7.0); NEUT % 31.9 % (50.0-75.0); NRBC % 0.1 % (0.0-2.0); RBC 4.22 Mil/uL (3.80-5.20); RED CELL DISTRIBUTION WIDTH 13.8 % (11.5-14.5); WHITE BLOOD COUNT 3.7 K/uL (4.8-10.8)
[2018-03-04 07:45] LABS: ALB/GLOB RATIO 1.1 (1.0-2.1); ALBUMIN 3.3 g/dL (3.5-5.0); ALT/SGPT 23 U/L (9-52); AST/SGOT 25 U/L (14-36); BLOOD UREA NITROGEN 12 mg/dL (7-17); CALCIUM 8.8 mg/dl (8.6-10.4); GFR AFRICAN-AMERICAN > 60; GFR NON-AFRICAN AMERICAN > 60
[2018-03-04] MEDS ORDERED: Midazolam 2 MG/2 ML VIAL ONE (08:15)
[2018-03-04] MEDS: Enoxaparin 30 mg Syringe SC SCH ×2 (10:27→22:00)
[2018-03-04] MEDS ORDERED: Bisacodyl 5mg EC Tab PO ONE (15:08)
--- NOTE | 2018-03-04 15:40 | CP.PCM.PN ---
<Tylor Mac - Last Filed: 03/04/18 15:41> Subjective - Date & Time of Evaluation Date of Evaluation: 03/04/18 Time of Evaluation: 15:39 - Subjective Subjective: patient seen and examined at bedside. Complains of constipation. No other complaints at this time. Tolerated cath well. Objective - Vital Signs/Intake and Output Vital Signs (last 24 hours): Temp Pulse Resp BP Pulse Ox 97.9 F 53 L 20 137/64 97 03/04/18 15:23 03/04/18 15:23 03/04/18 15:23 03/04/18 15:23 03/04/18 15:23 Intake and Output: 03/04/18 03/04/18 06:59 18:59 Intake Total 300 Output Total 500 Balance -200 - Medications Medications: Current Medications Acetaminophen (Tylenol 325mg Tab) 650 mg PO Q6 PRN PRN Reason: Pain, Mild (1-3) Last Admin: 03/03/18 21:07 Dose: 650 mg Aspirin (Aspirin Chewable) 81 mg PO DAILY [facility] Last Admin: 03/04/18 10:28 Dose: 81 mg Clopidogrel Bisulfate (Plavix) 75 mg PO DAILY [facility] Last Admin: 03/04/18 10:28 Dose: 75 mg Enoxaparin Sodium (Lovenox) 30 mg SC Q12 [facility] Last Admin: 03/04/18 10:27 Dose: Not Given Losartan Potassium (Cozaar) 100 mg PO DAILY [facility] Last Admin: 03/04/18 10:28 Dose: 100 mg Polyethylene Glycol (Miralax) 17 gm PO DAILY PRN PRN Reason: Constipation Rosuvastatin Calcium (Crestor) 5 mg PO HS [facility] Last Admin: 03/03/18 21:05 Dose: 5 mg - Labs Labs: 03/04/18 07:21 03/04/18 07:21 PT 11.3 SECONDS (9.7-12.2) 03/02/18 14:02 INR 1.0 03/02/18 14:02 APTT 30 SECONDS (21-34) 03/02/18 14:02 - Constitutional Appears: Well - Head Exam Head Exam: ATRAUMATIC, NORMAL INSPECTION, NORMOCEPHALIC - Eye Exam Eye Exam: EOMI, Normal appearance, PERRL Pupil Exam: NORMAL ACCOMODATION, PERRL - ENT Exam ENT Exam: Mucous Membranes Moist, Normal Exam - Neck Exam Neck Exam: Full ROM, Normal Inspection. absent: Lymphadenopathy - Respiratory Exam Respiratory Exam: Clear to Ausculation Bilateral, NORMAL BREATHING PATTERN - Cardiovascular Exam Cardiovascular Exam: REGULAR RHYTHM, +S1, +S2. absent: Murmur - GI/Abdominal Exam GI & Abdominal Exam: Soft, Normal Bowel Sounds. absent: Tenderness - Extremities Exam Extremities Exam: Full ROM, Normal Capillary Refill, Normal Inspection. absent : Joint Swelling, Pedal Edema - Back Exam Back Exam: NORMAL INSPECTION - Neurological Exam Neurological Exam: Alert, Awake, CN II-XII Intact, Normal Gait, Oriented x3 - Psychiatric Exam Psychiatric exam: Normal Affect, Normal Mood - Skin Skin Exam: Dry, Intact, Normal Color, Warm Assessment and Plan - Assessment and Plan (Free Text) Assessment: Chest pain chest pain resolved Cath today. No stents placed. Patient continues to be latia as far down as 30bpm today. Sinus latia on EKG. MUGA scan pending for EF - may need AICD or Life vest CAD Plavix 75mg aspirin 81mg losartan 100mg Elevated BNP BNP 1760 on admission cardiac cath report from 11/2017 shows EF 30% patient on ARB, not starting coreg due to bradycardia HTN losartan 100mg HLD crestor 5mg Prophylactic Measure Lovenox q12 miralax daily prn <Theo Landaverde - Last Filed: 03/05/18 14:37> Objective - Vital Signs/Intake and Output Vital Signs (last 24 hours): Temp Pulse Resp BP Pulse Ox 97.4 F L 70 20 131/70 96 03/05/18 07:00 03/05/18 11:42 03/05/18 07:00 03/05/18 07:00 03/05/18 11:42 - Medications Medications: Current Medications Aspirin (Aspirin Chewable) 81 mg PO DAILY [facility] Last Admin: 03/05/18 10:47 Dose: 81 mg Clopidogrel Bisulfate (Plavix) 75 mg PO DAILY [facility] Last Admin: 03/05/18 10:47 Dose: 75 mg Enoxaparin Sodium (Lovenox) 30 mg SC Q12 [facility] Last Admin: 03/05/18 10:46 Dose: 30 mg Losartan Potassium (Cozaar) 100 mg PO DAILY [facility] Last Admin: 03/04/18 10:28 Dose: 100 mg Polyethylene Glycol (Miralax) 17 gm PO DAILY PRN PRN Reason: Constipation Rosuvastatin Calcium (Crestor) 5 mg PO HS [facility] Last Admin: 03/04/18 23:01 Dose: 5 mg - Labs Labs: 03/04/18 07:21 03/04/18 07:21 PT 11.3 SECONDS (9.7-12.2) 03/02/18 14:02 INR 1.0 03/02/18 14:02 APTT 30 SECONDS (21-34) 03/02/18 14:02 Attending/Attestation - Attestation I have personally seen and examined this patient.: Yes I have fully participated in the care of the patient.: Yes I have reviewed all pertinent clinical information, including history, physical exam and plan: Yes Notes (Text): Seen and examined. patient denies chest pain 1.Chest pain, r/o ACS patient had cardiac catheterization 11/2017 at [facility] with Dr. Childs due to history of positive stress test. stenting at [facility] with Dr. Miller Plavix 75mg aspirin 81mg losartan 100mg due to bradycardia, will not start coreg at this time 2.Elevated BNP 3.HTN 4.HLD D/w Resident.I agree with the documentation s/p cath -patent stent.follow cath report with cardio bradycardic. resident d/w DR Childs who recommend MUGA scan
--- NOTE | 2018-03-04 17:18 | CARD ---
APPROVED REPORT EKG Measurement Heart [id number] <Conclusion> Sinus bradycardia Moderate voltage criteria for LVH, may be normal variant Borderline ECG
--- NOTE | 2018-03-04 18:55 | CARDCATH ---
PROCEDURE DATE: HISTORY: She is 72 years old, came in with history of chest pain. Past medical history is significant for systemic hypertension, hyperlipidemia, coronary artery disease. She had a stent in the left anterior descending artery in 11/2017. On first admission, she had mild elevation in serum troponin. She was brought in for a possible left heart cardiac catheterization. TECHNIQUE: The patient was brought electively into the cardiac catheterization laboratory in a fasting state, and was prepped and draped in a sterile manner. The right groin was infiltrated with 2% lidocaine and on the right with subcutaneous anesthesia. A 6-Amharic sheath was inserted in the right femoral artery without difficulty. Coronary angiography was performed using coronary diagnostic catheters. The left coronary system was accessed and visualized with JL 4.5 diagnostic catheter. The right coronary system was accessed and visualized with JR4 diagnostic catheter. Left ventricle was accessed and visualized with a pigtail diagnostic catheter. The left ventricular and aortic valve gradient was assessed and pulled back. Left ventriculogram was performed in MADRIGAL projections. Hemostasis was obtained with minimal pressure following sheath removal without any complications. The patient tolerated the procedure well and there were no complications associated with the procedure. VESSEL ANALYSIS: The patient's coronary anatomy is right dominant, the left main coronary artery is a medium-sized vessel without stenosis. The left main bifurcates to the left anterior descending and circumflex. The left anterior descending is a medium-sized vessel with a stent in the proximal segment which is widely patent. The first diagonal branch is a medium-sized vessel. The left circumflex artery is a medium-sized vessel. The first obtuse marginal is a medium-sized vessel. There is a 50% stenosis in the proximal segment. The right coronary artery is a medium-sized vessel. The right posterior lateral is a medium-sized vessel. There was a 70% stenosis in the proximal segment. The left ventricle is dilated in size. The left ventricular ejection fraction is estimated to be 35% to 40%. There was no gradient across the aortic valve upon pullback. CONCLUSION: Patent stent in the proximal left anterior descending artery. There is a 70% stenosis in the first obtuse marginal branch of the left circumflex in its mid segment. There is a 70% stenosis of the ostial right posterolateral branch of the right coronary artery. The left ventricle is diffusely hypokinetic with an estimated ejection fraction of 35% to 40%. The left ventricular end-diastolic pressures are mildly elevated. There is no significant transaortic gradient. RECOMMENDATIONS: Medical therapy and MUGA scan to ascertain left ventricular ejection fraction. Yumiko Childs MD MTDD
--- NOTE | 2018-03-04 19:28 | CARD ---
APPROVED REPORT EKG Measurement Heart [id number] AR [id number] [id number] <Conclusion> Sinus rhythm with premature supraventricular complexes Left ventricular hypertrophy Abnormal ECG
[2018-03-05] MEDS: Enoxaparin 30 mg Syringe SC SCH ×2 (10:46→21:29)
--- NOTE | 2018-03-05 13:50 | CP.PCM.PN ---
<Karli Lindsay - Last Filed: 03/05/18 13:47> Subjective - Date & Time of Evaluation Date of Evaluation: 03/05/18 Time of Evaluation: 07:00 - Subjective Subjective: Patient seen and examined at bedside. Patient resting comfortably in bed with no new complaints at this time. Patient aware that she is going for the muga scan today. Patient denies chest pain, palpitations, cough, abdominal pain, n/v/ d/c, calf pain, fever, and chills. Objective - Vital Signs/Intake and Output Vital Signs (last 24 hours): Temp Pulse Resp BP Pulse Ox 97.4 F L 70 20 131/70 96 03/05/18 07:00 03/05/18 11:42 03/05/18 07:00 03/05/18 07:00 03/05/18 11:42 - Medications Medications: Current Medications Aspirin (Aspirin Chewable) 81 mg PO DAILY [facility] Last Admin: 03/05/18 10:47 Dose: 81 mg Clopidogrel Bisulfate (Plavix) 75 mg PO DAILY [facility] Last Admin: 03/05/18 10:47 Dose: 75 mg Enoxaparin Sodium (Lovenox) 30 mg SC Q12 [facility] Last Admin: 03/05/18 10:46 Dose: 30 mg Losartan Potassium (Cozaar) 100 mg PO DAILY [facility] Last Admin: 03/04/18 10:28 Dose: 100 mg Polyethylene Glycol (Miralax) 17 gm PO DAILY PRN PRN Reason: Constipation Rosuvastatin Calcium (Crestor) 5 mg PO HS [facility] Last Admin: 03/04/18 23:01 Dose: 5 mg - Labs Labs: 03/04/18 07:21 03/04/18 07:21 PT 11.3 SECONDS (9.7-12.2) 03/02/18 14:02 INR 1.0 03/02/18 14:02 APTT 30 SECONDS (21-34) 03/02/18 14:02 - Constitutional Appears: Well - Head Exam Head Exam: ATRAUMATIC, NORMAL INSPECTION, NORMOCEPHALIC - Eye Exam Eye Exam: EOMI, Normal appearance, PERRL Pupil Exam: NORMAL ACCOMODATION, PERRL - ENT Exam ENT Exam: Mucous Membranes Moist, Normal Exam - Neck Exam Neck Exam: Full ROM, Normal Inspection. absent: Lymphadenopathy - Respiratory Exam Respiratory Exam: Clear to Ausculation Bilateral, NORMAL BREATHING PATTERN - Cardiovascular Exam Cardiovascular Exam: REGULAR RHYTHM, +S1, +S2. absent: Murmur - GI/Abdominal Exam GI & Abdominal Exam: Soft, Normal Bowel Sounds. absent: Tenderness - Extremities Exam Extremities Exam: Normal Capillary Refill, Normal Inspection. absent: Joint Swelling, Pedal Edema - Back Exam Back Exam: NORMAL INSPECTION - Neurological Exam Neurological Exam: Alert, Awake, Oriented x3 - Psychiatric Exam Psychiatric exam: Normal Affect, Normal Mood - Skin Skin Exam: Dry, Intact, Normal Color, Warm Assessment and Plan - Assessment and Plan (Free Text) Plan: Bradycardia Dr. Childs Cath 03/04 for chest pain that has now resolved; No stents placed; Sinus latia on EKG after procedure MUGA scan pending for EF - may need AICD or Life vest CAD Plavix 75mg aspirin 81mg losartan 100mg Elevated BNP BNP 1760 on admission cardiac cath report from 11/2017 shows EF 30% patient on ARB, not starting coreg due to bradycardia HTN losartan 100mg HLD crestor 5mg Prophylactic Measure Lovenox q12 miralax daily prn <Theo Landaverde - Last Filed: 03/05/18 17:32> Objective - Vital Signs/Intake and Output Vital Signs (last 24 hours): Temp Pulse Resp BP Pulse Ox 97.2 F L 87 20 148/80 96 03/05/18 16:02 03/05/18 16:02 03/05/18 16:02 03/05/18 16:02 03/05/18 16:02 - Medications Medications: Current Medications Aspirin (Aspirin Chewable) 81 mg PO DAILY [facility] Last Admin: 03/05/18 10:47 Dose: 81 mg Clopidogrel Bisulfate (Plavix) 75 mg PO DAILY [facility] Last Admin: 03/05/18 10:47 Dose: 75 mg Enoxaparin Sodium (Lovenox) 30 mg SC Q12 [facility] Last Admin: 03/05/18 10:46 Dose: 30 mg Losartan Potassium (Cozaar) 100 mg PO DAILY [facility] Last Admin: 03/04/18 10:28 Dose: 100 mg Polyethylene Glycol (Miralax) 17 gm PO DAILY PRN PRN Reason: Constipation Rosuvastatin Calcium (Crestor) 5 mg PO HS [facility] Last Admin: 03/04/18 23:01 Dose: 5 mg - Labs Labs: 03/04/18 07:21 03/04/18 07:21 PT 11.3 SECONDS (9.7-12.2) 03/02/18 14:02 INR 1.0 03/02/18 14:02 APTT 30 SECONDS (21-34) 03/02/18 14:02 Attending/Attestation - Attestation I have personally seen and examined this patient.: Yes I have fully participated in the care of the patient.: Yes I have reviewed all pertinent clinical information, including history, physical exam and plan: Yes Notes (Text): Seen and examined.Patient returned from MUGA scan.NO SOB,NO edema, She denies chest pain.She is not bradycardic on exam. 1.Chest pain, r/o ACS s/p cardiac cath yesterday 03/04/[address] Childs patent proximal LAD artery,LV is hypokinetic,estimated EF 35 to 40%. Recommended MUGA scan Plavix 75mg aspirin 81mg losartan 100mg due to bradycardia, will not start coreg at this time 2.Elevated BNP 3.HTN 4.HLD D/w Resident.I agree with the documentation of the resident's assessment and the plan follow MUGA scan report
[2018-03-06 08:26] LABS: HEMOGLOBIN 13.3 g/dL (11.0-16.0); MEAN CELL VOLUME 90.4 fL (81.0-99.0); MEAN CORPUSCULAR HEMOGLOBIN 31.3 pg (27.0-31.0); MEAN CORPUSCULAR HGB CONC 34.6 g/dL (33.0-37.0); RBC 4.24 Mil/uL (3.80-5.20); RED CELL DISTRIBUTION WIDTH 13.9 % (11.5-14.5); WHITE BLOOD COUNT 3.8 K/uL (4.8-10.8)
[2018-03-06 08:44] LABS: ALB/GLOB RATIO 1.1 (1.0-2.1); ALBUMIN 3.6 g/dL (3.5-5.0); ALT/SGPT 30 U/L (9-52); AST/SGOT 36 U/L (14-36); BLOOD UREA NITROGEN 15 mg/dL (7-17); GFR AFRICAN-AMERICAN > 60; GFR NON-AFRICAN AMERICAN > 60
[2018-03-06] MEDS: Enoxaparin 30 mg Syringe SC SCH ×2 (10:06→21:37)
--- NOTE | 2018-03-06 15:14 | CP.PCM.PN ---
<Karli Lindsay - Last Filed: 03/06/18 15:11> Subjective - Date & Time of Evaluation Date of Evaluation: 03/06/18 Time of Evaluation: 07:30 - Subjective Subjective: Patient seen and examined at bedside. Patient resting comfortably in bed with no new complaints at this time. Muga scan discussed and patient needs life vest per Dr. Childs, which she was made aware of. Patient denies chest pain, palpitations, cough, abdominal pain, n/v/d/c, calf pain, fever, and chills. Objective - Vital Signs/Intake and Output Vital Signs (last 24 hours): Temp Pulse Resp BP Pulse Ox 97.4 F L 73 18 145/83 100 03/06/18 07:24 03/06/18 07:24 03/06/18 07:24 03/06/18 07:24 03/06/18 07:24 - Medications Medications: Current Medications Aspirin (Aspirin Chewable) [address] [facility] Last Admin: 03/06/18 10:06 Dose: 81 mg Clopidogrel Bisulfate (Plavix) [address] [facility] Last Admin: 03/06/18 10:06 Dose: 75 mg Enoxaparin Sodium (Lovenox) [address] [facility] Last Admin: 03/06/18 10:06 Dose: 30 mg Losartan Potassium (Cozaar) [address] [facility] Last Admin: 03/04/18 10:28 Dose: 100 mg Polyethylene Glycol (Miralax) 17 gm PO DAILY PRN PRN Reason: Constipation Rosuvastatin Calcium (Crestor) [address] [facility] Last Admin: 03/05/18 21:29 Dose: 5 mg - Labs Labs: 03/06/18 08:13 03/06/18 08:13 PT 11.3 SECONDS (9.7-12.2) 03/02/18 14:02 INR 1.0 03/02/18 14:02 APTT 30 SECONDS (21-34) 03/02/18 14:02 - Additional Findings Additional findings: - Head Exam Head Exam: ATRAUMATIC, NORMAL INSPECTION, NORMOCEPHALIC - Eye Exam Eye Exam: EOMI, Normal appearance, PERRL Pupil Exam: NORMAL ACCOMODATION, PERRL - ENT Exam ENT Exam: Mucous Membranes Moist, Normal Exam - Neck Exam Neck Exam: Full ROM, Normal Inspection. absent: Lymphadenopathy - Respiratory Exam Respiratory Exam: Clear to Ausculation Bilateral, NORMAL BREATHING PATTERN - Cardiovascular Exam Cardiovascular Exam: REGULAR RHYTHM, +S1, +S2. absent: Murmur - GI/Abdominal Exam GI & Abdominal Exam: Soft, Normal Bowel Sounds. absent: Tenderness - Extremities Exam Extremities Exam: Normal Capillary Refill, Normal Inspection. absent: Joint Swelling, Pedal Edema - Back Exam Back Exam: NORMAL INSPECTION - Neurological Exam Neurological Exam: Alert, Awake, Oriented x3 - Psychiatric Exam Psychiatric exam: Normal Affect, Normal Mood - Skin Skin Exam: Dry, Intact, Normal Color, Warm Assessment and Plan - Assessment and Plan (Free Text) Plan: Bradycardia Dr. Childs recommends life vest which we are currently waiting on before patient can be discharged Cath 03/04 for chest pain that has now resolved; No stents placed; Sinus latia on EKG after procedure MUGA scan (03/05) shows EF 24% CAD Plavix 75mg aspirin 81mg losartan 100mg Elevated BNP BNP 1760 on admission cardiac cath report from 11/2017 shows EF 30% patient on ARB, not starting coreg due to bradycardia HTN losartan 100mg HLD crestor 5mg Prophylactic Measure Lovenox q12 miralax daily prn <Theo Landaverde - Last Filed: 03/06/18 18:06> Objective - Vital Signs/Intake and Output Vital Signs (last 24 hours): Temp Pulse Resp BP Pulse Ox 97.9 F 50 L 20 146/69 100 03/06/18 15:56 03/06/18 15:56 03/06/18 15:56 03/06/18 15:56 03/06/18 15:56 Intake and Output: 03/06/18 03/06/18 06:59 18:59 Intake Total 300 Balance 300 - Medications Medications: Current Medications Aspirin (Aspirin Chewable) [address] [facility] Last Admin: 03/06/18 10:06 Dose: 81 mg Clopidogrel Bisulfate (Plavix) [address] [facility] Last Admin: 03/06/18 10:06 Dose: 75 mg Enoxaparin Sodium (Lovenox) [address] [facility] Last Admin: 03/06/18 10:06 Dose: 30 mg Losartan Potassium (Cozaar) [address] [facility] Last Admin: 03/04/18 10:28 Dose: 100 mg Polyethylene Glycol (Miralax) 17 gm PO DAILY PRN PRN Reason: Constipation Rosuvastatin Calcium (Crestor) 5 mg PO HS [facility] Last Admin: 03/05/18 21:29 Dose: 5 mg - Labs Labs: 03/06/18 08:13 03/06/18 08:13 PT 11.3 SECONDS (9.7-12.2) 03/02/18 14:02 INR 1.0 03/02/18 14:02 APTT 30 SECONDS (21-34) 03/02/18 14:02 Attending/Attestation - Attestation I have personally seen and examined this patient.: Yes I have fully participated in the care of the patient.: Yes I have reviewed all pertinent clinical information, including history, physical exam and plan: Yes Notes (Text): Patient is lying down without discomfort.Seen and examined by me. She denies chest pain.She is not bradycardic on exam. 1.Chest pain, r/o ACS s/p cardiac cath yesterday 03/04/[address] Childs patent proximal LAD artery,LV is hypokinetic,estimated EF 35 to 40%. Plavix 75mg aspirin 81mg losartan 100mg due to bradycardia, will not start coreg at this time MUGA scan (03/05) shows EF 24% Resident discussed with education manager.Life vest recommended Patient will be discharge with life vest 2.Elevated BNP 3.HTN 4.HLD D/w Resident.I agree with the documentation of the resident's assessment and the plan
[2018-03-06 23:39] VITALS: O2SAT 97
[2018-03-07 07:10] LABS: HEMOGLOBIN 12.9 g/dL (11.0-16.0); MEAN CELL VOLUME 90.4 fL (81.0-99.0); MEAN CORPUSCULAR HEMOGLOBIN 30.7 pg (27.0-31.0); MEAN PLATELET VOLUME 9.1 fL (7.2-11.7); RBC 4.2 Mil/uL (3.80-5.20); RED CELL DISTRIBUTION WIDTH 14.1 % (11.5-14.5)
[2018-03-07 07:32] LABS: ALB/GLOB RATIO 1.1 (1.0-2.1); ALBUMIN 3.4 g/dL (3.5-5.0); ALT/SGPT 34 U/L (9-52); AST/SGOT 43 U/L (14-36); BLOOD UREA NITROGEN 15 mg/dL (7-17); CALCIUM 8.8 mg/dl (8.6-10.4); GFR AFRICAN-AMERICAN > 60; GFR NON-AFRICAN AMERICAN > 60
[2018-03-07 07:49] VITALS: BP 132/79; RESP 18; TEMP 97.6
[2018-03-07 08:44] VITALS: PULSE 72
[2018-03-07] MEDS: Enoxaparin 30 mg Syringe SC SCH (09:54)
--- NOTE | 2018-03-07 15:25 | CP.PCM.DIS ---
<Karli Lindsay - Last Filed: 03/07/18 15:29> Provider - Provider Date of Admission: 03/05/18 13:43 Attending physician: Ag Millan DO Consults: Dr. Miller Time Spent in preparation of Discharge (in minutes): 35 Diagnosis - Discharge Diagnosis (1) CAD (coronary artery disease) Status: Acute Hospital Course - Lab Results Lab Results: Most Recent Lab Values WBC 4.0 K/uL (4.8-10.8) L 03/07/18 07:01 RBC 4.20 Mil/uL (3.80-5.20) 03/07/18 07:01 Hgb 12.9 g/dL (11.0-16.0) 03/07/18 07:01 Hct 37.9 % (34.0-47.0) 03/07/18 07:01 MCV 90.4 fL (81.0-99.0) 03/07/18 07:01 MCH 30.7 pg (27.0-31.0) 03/07/18 07:01 MCHC 34.0 g/dL (33.0-37.0) 03/07/18 07:01 RDW 14.1 % (11.5-14.5) 03/07/18 07:01 Plt Count 185 K/uL (130-400) 03/07/18 07:01 MPV 9.1 fL (7.2-11.7) 03/07/18 07:01 Neut % (Auto) 31.9 % (50.0-75.0) L 03/04/18 07:21 Lymph % (Auto) 53.3 % (20.0-40.0) H 03/04/18 07:21 [place] % (Auto) 10.6 % (0.0-10.0) H 03/04/18 07:21 Eos % (Auto) 3.8 % (0.0-4.0) 03/04/18 07:21 Baso % (Auto) 0.4 % (0.0-2.0) 03/04/18 07:21 Neut # (Auto) 1.2 K/uL (1.8-7.0) L 03/04/18 07:21 Lymph # (Auto) 1.9 K/uL (1.0-4.3) 03/04/18 07:21 [place] # (Auto) 0.4 K/uL (0.0-0.8) 03/04/18 07:21 Eos # (Auto) 0.1 K/uL (0.0-0.7) 03/04/18 07:21 Baso # (Auto) 0.0 K/uL (0.0-0.2) 03/04/18 07:21 PT 11.3 SECONDS (9.7-12.2) 03/02/18 14:02 INR 1.0 03/02/18 14:02 APTT 30 SECONDS (21-34) 03/02/18 14:02 Sodium 142 mmol/L (132-148) 03/07/18 07:01 Potassium 4.0 mmol/L (3.6-5.2) 03/07/18 07:01 Chloride 103 mmol/L (98-107) 03/07/18 07:01 Carbon Dioxide 29 mmol/L (22-30) 03/07/18 07:01 Anion Gap 15 (10-20) 03/07/18 07:01 BUN 15 mg/dL (7-17) 03/07/18 07:01 Creatinine 0.8 mg/dL (0.7-1.2) 03/07/18 07:01 Est GFR ( Amer) > 60 03/07/18 07:01 Est GFR (Non-Af Amer) > 60 03/07/18 07:01 Random Glucose 87 mg/dL (65-105) 03/07/18 07:01 Hemoglobin A1c 5.5 % (4.2-6.5) 03/03/18 07:22 Calcium 8.8 mg/dl (8.6-10.4) 03/07/18 07:01 Phosphorus 4.1 mg/dL (2.5-4.5) 03/07/18 07:01 Magnesium 1.9 mg/dL (1.6-2.3) 03/07/18 07:01 Total Bilirubin 0.6 mg/dL (0.2-1.3) 03/07/18 07:01 AST 43 U/L (14-36) H 03/07/18 07:01 ALT 34 U/L (9-52) 03/07/18 07:01 Alkaline Phosphatase 45 U/L (38-126) 03/07/18 07:01 Total Creatine Kinase 95 U/L (30-135) 03/03/18 02:16 CK-MB (Mass) 1.12 ng/mL (0.0-3.38) 03/03/18 02:16 Troponin I 0.0240 ng/mL (0.00-0.120) 03/03/18 02:16 NT-Pro-B Natriuret Pep 1760 pg/mL (0-900) H 03/02/18 14:02 Total Protein 6.6 g/dL (6.3-8.3) 03/07/18 07:01 Albumin 3.4 g/dL (3.5-5.0) L 03/07/18 07:01 Globulin 3.2 gm/dL (2.2-3.9) 03/07/18 07:01 Albumin/Globulin Ratio 1.1 (1.0-2.1) 03/07/18 07:01 Triglycerides 92 mg/dL (0-149) 03/03/18 07:22 Cholesterol 219 mg/dL (0-199) H 03/03/18 07:22 LDL Cholesterol Direct 158 mg/dL (0-129) H 03/03/18 07:22 HDL Cholesterol 41 mg/dL (30-70) 03/03/18 07:22 Free T4 1.20 ng/dL (0.78-2.19) 03/03/18 07:22 Total T3 1.52 nmol/L (1.49-2.60) 03/03/18 07:22 TSH 3rd Generation 0.32 mIU/L (0.46-4.68) L 03/03/18 07:22 - Hospital Course Hospital Course: Upon admission: Patient is a 72 year old female with PMHx significant for CAD with stents and HTN who presents to the ED with history of chest pain which began this morning. She states she had pain and tingling in her left arm at the same time as the chest pain. She also reports shortness of breath and left leg tingling at the time of the chest pain. Patient states all of her symptoms resolved en route to ED. Patient reports taking only a baby aspirin this morning. She also reports occasional dizziness and headache but denies fever, chills, palpitations , cough. Patient denies sick contacts. Patient reports stents were placed two months ago but she is unsure of how many stents or what medication she is taking aside from Losartan and aspirin 81mg. Patient also reports occasional RLQ abdominal pain that accompanies constipation. Hospital Course: Pt was admitted to hospital on telemetry 03/02 for chest pain and to r/o ACS. EKG 03/02 showed sinus rhythm at 69bpm with premature supraventricular complexes and LVH. CXR 03/02 showed mild venous congestion, patchy increased markings in the R infrahilar region and L lung base, and tortuous ectatic aorta. Troponins x3 were negative. F/u EKG 03/02 showed sinus bradycardia and moderate voltage criteria for LVH; read as borderline. Pt placed on Plavix 75mg, ASA 81mg, Crestor 5mg and continued home meds Losartan 100mg. Coreg was held 2/2 bradycardia. Pt also placed prophylactically on Heparin 5000 u, Protonix 40mg, Miralax daily prn. Seen by editor book Dr. Childs 03/02 who planned for cardiac cath for 03/04. Cath procedure showed patent stent in proximal LAD, 70% stenosis of first obtuse marginal branch of LC, 70% stenosis of ostial right posterolateral RCA, diffusely hypokinesis of LV with EF estimated 35-40%, mildly elevated LV end diastolic pressure. No stents were placed. Recommended medical therapy and MUGA scan. MUGA scan 03/05 showed LVEF 24%. Pt continued to have sinus latia following procedure and Dr. Childs recmmended life vest which patinet was given on 03/07 and cleared for discharge home by Dr. Landaverde and consults. Please note that this is a summary of events. For more details please see complete medical record. Discharge Exam - Head Exam Head Exam: ATRAUMATIC, NORMAL INSPECTION, NORMOCEPHALIC - Eye Exam Eye Exam: EOMI, Normal appearance, PERRL Pupil Exam: NORMAL ACCOMODATION, PERRL - Cardiovascular Exam Cardiovascular Exam: Bradycardia - GI/Abdominal Exam GI & Abdominal Exam: Normal Bowel Sounds - Neurological Exam Neurological exam: Alert, Oriented x3 - Psychiatric Exam Psychiatric exam: Normal Affect, Normal Mood - Skin Skin Exam: Dry, Intact, Normal Color, Warm Discharge Plan - Discharge Medications Prescriptions: Aspirin [Aspirin Chewable] 81 mg PO DAILY #30 chew Clopidogrel [Plavix] 75 mg PO DAILY #30 tab Losartan-Hctz 100-12.5 mg Tab 1 tab PO DAILY #30 Rosuvastatin Calcium [Crestor] 5 mg PO HS #30 tab - Follow Up Plan Condition: GOOD Disposition: HOME/ ROUTINE Instructions: Heart Failure, Adult, Chest Pain (DC), Coronary Heart Disease (DC ) Additional Instructions: Please follow up with your primary care provider as well as Dr. Childs within 1 week of discharge. Please continue Aspirin, Plavix, Crestor, and Losartan/HCTZ as prescribed. Referrals: Reina Childs MD [Staff Provider] - <Theo Landaverde - Last Filed: 03/08/18 15:03> Provider - Provider Date of Admission: 03/05/18 13:43 Attending physician: Ag Millan DO Hospital Course - Lab Results Lab Results: Most Recent Lab Values WBC 4.0 K/uL (4.8-10.8) L 03/07/18 07:01 RBC 4.20 Mil/uL (3.80-5.20) 03/07/18 07:01 Hgb 12.9 g/dL (11.0-16.0) 03/07/18 07:01 Hct 37.9 % (34.0-47.0) 03/07/18 07:01 MCV 90.4 fL (81.0-99.0) 03/07/18 07:01 MCH 30.7 pg (27.0-31.0) 03/07/18 07:01 MCHC 34.0 g/dL (33.0-37.0) 03/07/18 07:01 RDW 14.1 % (11.5-14.5) 03/07/18 07:01 Plt Count 185 K/uL (130-400) 03/07/18 07:01 MPV 9.1 fL (7.2-11.7) 03/07/18 07:01 Neut % (Auto) 31.9 % (50.0-75.0) L 03/04/18 07:21 Lymph % (Auto) 53.3 % (20.0-40.0) H 03/04/18 07:21 [place] % (Auto) 10.6 % (0.0-10.0) H 03/04/18 07:21 Eos % (Auto) 3.8 % (0.0-4.0) 03/04/18 07:21 Baso % (Auto) 0.4 % (0.0-2.0) 03/04/18 07:21 Neut # (Auto) 1.2 K/uL (1.8-7.0) L 03/04/18 07:21 Lymph # (Auto) 1.9 K/uL (1.0-4.3) 03/04/18 07:21 [place] # (Auto) 0.4 K/uL (0.0-0.8) 03/04/18 07: Eos # (Auto) 0.1 K/uL (0.0-0.7) 03/04/18 07: Baso # (Auto) 0.0 K/uL (0.0-0.2) 03/04/18 07:21 PT 11.3 SECONDS (9.7-12.2) 03/02/18 14:02 INR 1.0 03/02/18 14:02 APTT 30 SECONDS (21-34) 03/02/18 14:02 Sodium 142 mmol/L (132-148) 03/07/18 07:01 Potassium 4.0 mmol/L (3.6-5.2) 03/07/18 07:01 Chloride 103 mmol/L (98-107) 03/07/18 07:01 Carbon Dioxide 29 mmol/L (22-30) 03/07/18 07:01 Anion Gap 15 (10-20) 03/07/18 07:01 BUN 15 mg/dL (7-17) 03/07/18 07:01 Creatinine 0.8 mg/dL (0.7-1.2) 03/07/18 07:01 Est GFR ( Amer) > 60 03/07/18 07:01 Est GFR (Non-Af Amer) > 60 03/07/18 07:01 Random Glucose 87 mg/dL (65-105) 03/07/18 07:01 Hemoglobin A1c 5.5 % (4.2-6.5) 03/03/18 07:22 Calcium 8.8 mg/dl (8.6-10.4) 03/07/18 07:01 Phosphorus 4.1 mg/dL (2.5-4.5) 03/07/18 07:01 Magnesium 1.9 mg/dL (1.6-2.3) 03/07/18 07:01 Total Bilirubin 0.6 mg/dL (0.2-1.3) 03/07/18 07:01 AST 43 U/L (14-36) H 03/07/18 07:01 ALT 34 U/L (9-52) 03/07/18 07:01 Alkaline Phosphatase 45 U/L (38-126) 03/07/18 07:01 Total Creatine Kinase 95 U/L (30-135) 03/03/18 02:16 CK-MB (Mass) 1.12 ng/mL (0.0-3.38) 03/03/18 02:16 Troponin I 0.0240 ng/mL (0.00-0.120) 03/03/18 02:16 NT-Pro-B Natriuret Pep 1760 pg/mL (0-900) H 03/02/18 14:02 Total Protein 6.6 g/dL (6.3-8.3) 03/07/18 07:01 Albumin 3.4 g/dL (3.5-5.0) L 03/07/18 07:01 Globulin 3.2 gm/dL (2.2-3.9) 03/07/18 07:01 Albumin/Globulin Ratio 1.1 (1.0-2.1) 03/07/18 07:01 Triglycerides 92 mg/dL (0-149) 03/03/18 07:22 Cholesterol 219 mg/dL (0-199) H 03/03/18 07:22 LDL Cholesterol Direct 158 mg/dL (0-129) H 03/03/18 07:22 HDL Cholesterol 41 mg/dL (30-70) 03/03/18 07:22 Free T4 1.20 ng/dL (0.78-2.19) 03/03/18 07:22 Total T3 1.52 nmol/L (1.49-2.60) 03/03/18 07:22 TSH 3rd Generation 0.32 mIU/L (0.46-4.68) L 03/03/18 07:22 Attending/Attestation - Attestation I have personally seen and examined this patient.: Yes I have fully participated in the care of the patient.: Yes I have reviewed all pertinent clinical information, including history, physical exam and plan: Yes Notes (Text): Patient was discharged home with life vest.Follow editor book.Spoke to her daughter before discharge I agree with the documentation of the resident's discharge documentation
--- NOTE | 2018-03-09 21:47 | CARD ---
APPROVED REPORT EKG Measurement Heart [id number] <Conclusion> Sinus bradycardia Rightward axis Nonspecific ST and T wave abnormality Abnormal ECG
== END 2018-03-07 11:00 | disposition home or self-care (01) | DRG 287 ==
LOC: C.ER 12:39 → C.9E 16:00 → C.5S 16:37 → OBSVTOIN 03-05 13:43
PROVIDERS: ADMIT Hospitalist; ATTEND Hospitalist
PROC: B215YZZ Fluoroscopy of Left Heart using Other Contrast (ICD-10-PCS; 2018-03-04)
PROC: B211YZZ Fluoroscopy of Multiple Coronary Arteries using Other Contrast (ICD-10-PCS; 2018-03-04)
PROC: 4A023N7 Measurement of Cardiac Sampling and Pressure, Left Heart, Percutaneous Approach (ICD-10-PCS; principal; 2018-03-04 07:00)
DX: I25.110 Atherosclerotic heart disease of native coronary artery with unstable angina pectoris (principal); E78.00 Pure hypercholesterolemia, unspecified; I11.0 Hypertensive heart disease with heart failure; I50.9 Heart failure, unspecified; I25.5 Ischemic cardiomyopathy; I77.819 Aortic ectasia, unspecified site; K59.00 Constipation, unspecified; Z90.49 Acquired absence of other specified parts of digestive tract; Z95.5 Presence of coronary angioplasty implant and graft; R00.1 Bradycardia, unspecified

== ENCOUNTER 2018-12-05 02:33 | Emergency (ER) | payer MEDICARE ==
[2018-12-05 02:51] VITALS: O2SAT 99
[2018-12-05] MEDS ORDERED: Sodium Chloride 0.9% 1,000 ML IV ONE (03:04)
--- NOTE | 2018-12-05 03:16 | C.PDOC ---
History Of Present Illness 73 year old female presents to the ER with a complaint of crampy abdominal pain and right flank pain for the past week. Patient has a Hx of chronic constipation, her diet consists of fried foods, rice, beans, has had multiple presentations for same. Time Seen by Provider: 12/05/18 02:58 Chief Complaint (Nursing): Abdominal Pain History Per: Patient History/Exam Limitations: no limitations Onset/Duration Of Symptoms: Days Current Symptoms Are (Timing): Still Present Quality Of Discomfort: Cramping Associated Symptoms: Constipation. denies: Fever, Chills, Nausea, Vomiting Exacerbating Factors: None Alleviating Factors: None Recent travel outside of the [place]: No Past Medical History Reviewed: Historical Data, Nursing Documentation, Vital Signs Vital Signs: Last Vital Signs Temp 97.4 F L 12/05/18 02:46 Pulse 78 12/05/18 02:46 Resp 20 12/05/18 02:46 BP 161/76 H 12/05/18 02:46 Pulse Ox 99 12/05/18 02:46 - Medical History PMH: Cardia Arrhythmia (PVC), CHF, Gall Bladder Disease, HTN, Hypercholesterolemia Denies: Chronic Kidney Disease Surgical History: Cholecystectomy, Coronary Stent (2 months ago?) - [facility] Procedures FLUOROSCOPY OF LEFT HEART USING OTHER CONTRAST (03/05/18) FLUOROSCOPY OF MULTIPLE CORONARY ARTERIES USING OTH CONTRAST (03/05/18) MEASURE OF CARDIAC SAMPL & PRESSURE, L HEART, PERC APPROACH (03/05/18) TETANUS TOXOID ADMINIST (12/31/13) Family History: States: Unknown Family Hx - Social History Hx Tobacco Use: No Hx Alcohol Use: No Hx Substance Use: No - Immunization History Hx Tetanus Toxoid Vaccination: No Hx Influenza Vaccination: No Hx Pneumococcal Vaccination: No Review Of Systems Constitutional: Negative for: Fever, Chills Cardiovascular: Negative for: Chest Pain, Palpitations Respiratory: Negative for: Cough, Shortness of Breath Gastrointestinal: Positive for: Abdominal Pain, Constipation (Chronic) Neurological: Negative for: Weakness, Numbness Physical Exam - Physical Exam Appears: Non-toxic, No Acute Distress Skin: Normal Color, Warm, Dry Head: Atraumatic, Normacephalic Eye(s): bilateral: Normal Inspection Oral Mucosa: Moist Chest: Symmetrical, No Tenderness Cardiovascular: Rhythm Regular Respiratory: Normal Breath Sounds, No Rales, No Rhonchi, No Wheezing Gastrointestinal/Abdominal: Soft, No Tenderness (Negative brown's. Negative Mcburney's.), Other (Obese. Tympanic epigastrium, Dull LLQ) Back: No CVA Tenderness Neurological/Psych: Oriented x3, Normal Speech ED Course And Treatment - Laboratory Results Result Diagrams: 12/05/18 03:23 12/05/18 03:23 Lab Interpretation: Normal (ua neg.) O2 Sat by Pulse Oximetry: 99 (Room air) Pulse Ox Interpretation: Normal - Radiology CXR: Interpreted by Me CXR Interpretation: Yes: No Acute Disease - Other Rad abd x 2 X-Ray: Interpreted by Me (+FOS, no obst) Medical Decision Making Medical Decision Making: acute on chronic contipation prior presentations for same laxative and diet changes educated Disposition Doctor Will See Patient In The: Office Counseled Patient/Family Regarding: Studies Performed, Diagnosis - Disposition Disposition: HOME/ ROUTINE Disposition Time: 04:05 Condition: GOOD Forms: [facility] (Irish) - Clinical Impression Clinical Impression: Colicky abdominal pain - Scribe Statement The provider has reviewed the documentation as recorded by the Scribashtyn Manning All medical record entries made by the Scribe were at my direction and personally dictated by me. I have reviewed the chart and agree that the record accurately reflects my personal performance of the history, physical exam, medical decision making, and the department course for this patient. I have also personally directed, reviewed, and agree with the discharge instructions and disposition.
[2018-12-05 03:27] LABS: BASO % 0.3 % (0.0-2.0); EOS # 0.1 K/uL (0.0-0.7); EOS % 1.1 % (0.0-4.0); HEMOGLOBIN 13.6 g/dL (11.0-16.0); LYMPH # 2.2 K/uL (1.0-4.3); LYMPH % 45.1 % (20.0-40.0); MEAN CELL VOLUME 90.5 fL (81.0-99.0); MEAN CORPUSCULAR HEMOGLOBIN 30.5 pg (27.0-31.0); MEAN CORPUSCULAR HGB CONC 33.7 g/dL (33.0-37.0); MEAN PLATELET VOLUME 8.4 fL (7.2-11.7); MONO # 0.4 K/uL (0.0-0.8); MONO % 8.3 % (0.0-10.0); NEUT # 2.2 K/uL (1.8-7.0); NEUT % 45.2 % (50.0-75.0); NRBC % 0.1 % (0.0-2.0); RBC 4.45 Mil/uL (3.80-5.20); RED CELL DISTRIBUTION WIDTH 13.6 % (11.5-14.5); WHITE BLOOD COUNT 4.9 K/uL (4.8-10.8)
[2018-12-05 03:32] LABS: SQUAMOUS EPITHIAL < 1 /hpf (0-5); URINE BILIRUBIN NEGATIVE (NEGATIVE); URINE BLOOD NEGATIVE (NEGATIVE); URINE CLARITY Clear (Clear); URINE COLOR Yellow (YELLOW); URINE GLUCOSE (UA) NORMAL (Normal); URINE LEUKOCYTE ESTERASE TRACE Leu/uL (Negative); URINE PROTEIN NEGATIVE (NEGATIVE); URINE UROBILINOGEN NORMAL mg/dL (0.2-1.0)
[2018-12-05 03:39] LABS: ALB/GLOB RATIO 1.5 (1.0-2.1); ALT/SGPT 37 U/L (9-52); AST/SGOT 27 U/L (14-36); BLOOD UREA NITROGEN 17 mg/dL (7-17); GFR NON-AFRICAN AMERICAN > 60; LIPASE 228 U/L (23-300)
[2018-12-05] MEDS ORDERED: Magnesium Citrate Oral SOL (300 ml) PO ONE (04:08)
[2018-12-05 04:24] VITALS: BP 140/70; PULSE 70; RESP 14; TEMP 97.5
[2018-12-05] MEDS ORDERED: Magnesium Citrate Oral SOL (300 ml) ONE (04:25)
--- NOTE | 2018-12-05 10:16 | RAD ---
Date of service: 12/05/2018 PROCEDURE: Radiographs of the chest and abdomen (obstructive series) HISTORY: abd pain COMPARISON: No prior. TECHNIQUE: AP radiograph of the chest, with upright and supine radiographs of the abdomen. FINDINGS: CHEST: Lungs: Clear. Cardiovascular: Normal size heart. No pulmonary vascular congestion. No aortic atherosclerotic calcification present Pleura: No pleural fluid. No pneumothorax. Other findings: None. ABDOMEN AND PELVIS: Bowel: Unremarkable bowel gas pattern. No evidence of mechanical obstruction. Free air: None. Bones: Unremarkable. Other findings: None. IMPRESSION: Unremarkable radiographs of chest and abdomen. No evidence of mechanical bowel obstruction.
== END 2018-12-05 04:24 | disposition home or self-care (01) ==
LOC: C.ER 02:33
DX: R10.84 Generalized abdominal pain (principal); I11.0 Hypertensive heart disease with heart failure; I50.9 Heart failure, unspecified; E78.00 Pure hypercholesterolemia, unspecified; Z95.5 Presence of coronary angioplasty implant and graft; Z90.49 Acquired absence of other specified parts of digestive tract
CPT/HCPCS: 74022; 80053; 81001; 83690; 85025; 96374; 99285; J1885; J7030

== ENCOUNTER 2018-12-07 09:29 | Emergency (ER) | payer MEDICARE ==
[2018-12-07 09:38] VITALS: RESP 18
--- NOTE | 2018-12-07 10:05 | C.PDOC ---
History Of Present Illness 73 year old female presents to the ED complaining of right flank pain for one week. Patient was seen in the ED on 12/05/17 , diagnosed with constipation and discharged. Reports pain is worse and is now associated with nausea. Denies any chest pain, sob, fever, chills, nausea, vomiting, or urinary symptoms. Chief Complaint (Nursing): Back Pain History Per: Patient History/Exam Limitations: no limitations Onset/Duration Of Symptoms: Days Current Symptoms Are (Timing): Still Present Quality Of Discomfort: "Pain" Previous Symptoms: None Past Medical History Reviewed: Historical Data, Nursing Documentation, Vital Signs Vital Signs: Last Vital Signs Temp 97.7 F 12/07/18 09:35 Pulse 72 12/07/18 09:35 Resp 18 12/07/18 09:35 BP 159/88 H 12/07/18 09:35 Pulse Ox 99 12/07/18 09:35 - Medical History PMH: Cardia Arrhythmia (PVC), CHF, Gall Bladder Disease, HTN, Hypercholesterolemia Denies: Chronic Kidney Disease Surgical History: Cholecystectomy, Coronary Stent (2 months ago?) - [facility] Procedures FLUOROSCOPY OF LEFT HEART USING OTHER CONTRAST (03/05/18) FLUOROSCOPY OF MULTIPLE CORONARY ARTERIES USING OTH CONTRAST (03/05/18) MEASURE OF CARDIAC SAMPL & PRESSURE, L HEART, PERC APPROACH (03/05/18) TETANUS TOXOID ADMINIST (12/31/13) Family History: States: No Known Family Hx - Social History Hx Tobacco Use: No Hx Alcohol Use: No Hx Substance Use: No - Immunization History Hx Tetanus Toxoid Vaccination: No Hx Influenza Vaccination: No Hx Pneumococcal Vaccination: No Review Of Systems Except As Marked, All Systems Reviewed And Found Negative. Constitutional: Negative for: Fever, Chills Cardiovascular: Negative for: Chest Pain Respiratory: Negative for: Shortness of Breath Gastrointestinal: Positive for: Nausea, Abdominal Pain. Negative for: Vomiting, Diarrhea Genitourinary: Negative for: Dysuria, Hematuria Physical Exam - Physical Exam Appears: Non-toxic, No Acute Distress Skin: Warm, Dry, No Rash Head: Normacephalic Eye(s): bilateral: Normal Inspection Nose: Normal Oral Mucosa: Moist Neck: Supple Chest: Symmetrical Cardiovascular: Rhythm Regular Respiratory: Normal Breath Sounds, No Rales, No Rhonchi, No Wheezing Gastrointestinal/Abdominal: Soft, Tenderness (right posterior flank ), No Distention, No Guarding, No Rebound Back: No CVA Tenderness Neurological/Psych: Oriented x3, Normal Speech Gait: Steady ED Course And Treatment - Laboratory Results Result Diagrams: 12/07/18 11:19 12/07/18 11:19 O2 Sat by Pulse Oximetry: 99 (RA) Pulse Ox Interpretation: Normal - CT Scan/US CT ABD/PEL Other Rad Studies (CT/US): Read By Radiologist, Radiology Report Reviewed CT/US Interpretation: Accession No. : [id number]. Patient Name / ID : DOM GUARDADO / [id number]. Exam Date : 12/07/2018 10:58:58 ( Approved ). Study Comment : Sex / Age : F / [id number]. Creator : Lyndsey Raymundo. Dictator : Andra De La Cruz MD. Financial Reporting Consultant : Health Insurance Adjuster : Andra De La Cruz MD. Appro ver2 : Report Date : 12/07/2018 11:23:35. My Comment : . Date of service: 12/07/2018. PROCEDURE: CT Abdomen and Pelvis without intravenous contrast. HISTORY: Right flank pain. COMPARISON: 07/22/2017. TECHNIQUE: CT scan of the abdomen and pelvis was performed without administration of intravenous contrast. Oral contrast was not administered. Coronal and sagittal reformatted images were obtained. . Radiation dose: Total exam DLP = 370.43 mGy-cm. This CT exam was performed using one or more of the following dose reduction techniques: Automated exposure control, adjustment of the mA and/or kV according to patient size, and/or use of iterative reconstruction technique. FINDINGS: LOWER THORAX: The visualized lungs are clear. LIVER: Normal in size. No intrahepatic ductal dilatation. GALLBLADDER AND BILE DUCTS: Surgically absent. PANCREAS: Normal in size. No ductal dilatation. SPLEEN: Normal in size. ADRENALS: Mild thickening of the adrenal glands. No discrete nodule. KIDNEYS AND URETERS: There is mild edema and enlargement of the right kidney with perinephric stranding, mild right hydronephrosis, mild diffuse dilatation of the right ureter without obstructing stone. The left kidney is normal in size without nephrolithiasis or hydronephrosis. VASCULATURE: No aortic aneurysm. There are early aortic atherosclerotic calcifications present. BOWEL: There are fluid-filled normal caliber small bowel loops. The colon is normal in size. No bowel dilatation or wall thickening. No bowel obstruction. APPENDIX: Normal appendix. PERITONEUM: No free fluid. No free air. LYMPH NODES: No enlarged lymph nodes. BLADDER: Well distended and grossly normal in appearance. REPRODUCTIVE: The uterus is normal in size. BONES: No acute fracture. The. There is diffuse bone demineralization and multilevel degenerative changes in the spine. OTHER FINDINGS: There is a small sliding hiatal hernia. IMPRESSION: Mild edema and enlargement of the right kidney, mild perinephric fat stranding, mild hydronephrosis and diffuse dilatation of the right ureteral without obstructing stone, most compatible with recent passage of stone. Small sliding hiatal hernia. Progress Note: CT abd/pel ordered and reviewed. Blood and urine collected and sent to the lab for analsyis. Patient treated with Morphine, Zofran and IV fluids. On re-evaluation patient feels better and is stable to be d/c home with PMD/Clinic follow up. Disposition - Disposition Referrals: Ju Stanley MD [Staff Provider] - Disposition: HOME/ ROUTINE Disposition Time: 13:06 Condition: STABLE Additional Instructions: Follow up with PMD and Urologist within 1-2 days. Return to ED if feel worse. Prescriptions: Lidocaine 5% [Lidoderm] 1 patch TP DAILY #30 patch Ibuprofen [Motrin Tab] 400 mg PO Q8 #30 tab Methocarbamol [Robaxin-750] 750 mg PO TID #30 tab Instructions: Low Back Pain (DC), Renal Colic (DC) Forms: [facility] ([place] Citizen) - Clinical Impression Clinical Impression: Flank pain - PA / HEALTH INSURANCE ADJUSTER / Resident Statement MD/DO has reviewed & agrees with the documentation as recorded. - Scribe Statement The provider has reviewed the documentation as recorded by the Scribe Rosanna Mcclain All medical record entries made by the Scribe were at my direction and personally dictated by me. I have reviewed the chart and agree that the record accurately reflects my personal performance of the history, physical exam, medical decision making, and the department course for this patient. I have also personally directed, reviewed, and agree with the discharge instructions and disposition.
[2018-12-07] MEDS ORDERED: Sodium Chloride 0.9% 1,000 ML IV STA (10:23)
[2018-12-07] MEDS ORDERED: Morphine 4 MG/ML VIAL ONE (11:08)
[2018-12-07] MEDS ORDERED: Sodium Chloride 0.9% 1,000 ML ONE (11:09)
[2018-12-07 11:29] LABS: BASO % 0.3 % (0.0-2.0); EOS % 0.7 % (0.0-4.0); HEMOGLOBIN 14.7 g/dL (11.0-16.0); LYMPH # 1.9 K/uL (1.0-4.3); LYMPH % 34.2 % (20.0-40.0); MEAN CELL VOLUME 91.3 fL (81.0-99.0); MEAN CORPUSCULAR HEMOGLOBIN 30.9 pg (27.0-31.0); MEAN CORPUSCULAR HGB CONC 33.8 g/dL (33.0-37.0); MEAN PLATELET VOLUME 8.7 fL (7.2-11.7); MONO # 0.5 K/uL (0.0-0.8); MONO % 8.8 % (0.0-10.0); NEUT # 3.2 K/uL (1.8-7.0); NRBC % 0.1 % (0.0-2.0); RBC 4.76 Mil/uL (3.80-5.20); RED CELL DISTRIBUTION WIDTH 13.3 % (11.5-14.5); WHITE BLOOD COUNT 5.6 K/uL (4.8-10.8)
[2018-12-07 11:39] LABS: ALB/GLOB RATIO 1.5 (1.0-2.1); ALBUMIN 4.5 g/dL (3.5-5.0); ALT/SGPT 36 U/L (9-52); AST/SGOT 33 U/L (14-36); BLOOD UREA NITROGEN 15 mg/dL (7-17); CALCIUM 9.6 mg/dl (8.6-10.4); GFR NON-AFRICAN AMERICAN > 60; LIPASE 126 U/L (23-300)
[2018-12-07 11:42] LABS: SQUAMOUS EPITHIAL < 1 /hpf (0-5); URINE BILIRUBIN NEGATIVE (NEGATIVE); URINE BLOOD NEGATIVE (NEGATIVE); URINE CLARITY Clear (Clear); URINE COLOR Straw (YELLOW); URINE GLUCOSE (UA) NORMAL (Normal); URINE LEUKOCYTE ESTERASE TRACE Leu/uL (Negative); URINE PROTEIN NEGATIVE (NEGATIVE); URINE UROBILINOGEN NORMAL mg/dL (0.2-1.0)
--- NOTE | 2018-12-07 12:13 | CT ---
Date of service: 12/07/2018 PROCEDURE: CT Abdomen and Pelvis without intravenous contrast HISTORY: Right flank pain COMPARISON: 07/22/2017. TECHNIQUE: CT scan of the abdomen and pelvis was performed without administration of intravenous contrast. Oral contrast was not administered. Coronal and sagittal reformatted images were obtained. . Radiation dose: Total exam DLP = 370.43 mGy-cm. This CT exam was performed using one or more of the following dose reduction techniques: Automated exposure control, adjustment of the mA and/or kV according to patient size, and/or use of iterative reconstruction technique. FINDINGS: LOWER THORAX: The visualized lungs are clear. LIVER: Normal in size. No intrahepatic ductal dilatation. GALLBLADDER AND BILE DUCTS: Surgically absent PANCREAS: Normal in size. No ductal dilatation. SPLEEN: Normal in size. ADRENALS: Mild thickening of the adrenal glands. No discrete nodule. KIDNEYS AND URETERS: There is mild edema and enlargement of the right kidney with perinephric stranding, mild right hydronephrosis, mild diffuse dilatation of the right ureter without obstructing stone. The left kidney is normal in size without nephrolithiasis or hydronephrosis. VASCULATURE: No aortic aneurysm. There are early aortic atherosclerotic calcifications present. BOWEL: There are fluid-filled normal caliber small bowel loops. The colon is normal in size. No bowel dilatation or wall thickening. No bowel obstruction. APPENDIX: Normal appendix. PERITONEUM: No free fluid. No free air. LYMPH NODES: No enlarged lymph nodes. BLADDER: Well distended and grossly normal in appearance. REPRODUCTIVE: The uterus is normal in size BONES: No acute fracture. The There is diffuse bone demineralization and multilevel degenerative changes in the spine. OTHER FINDINGS: There is a small sliding hiatal hernia. IMPRESSION: Mild edema and enlargement of the right kidney, mild perinephric fat stranding, mild hydronephrosis and diffuse dilatation of the right ureteral without obstructing stone, most compatible with recent passage of stone. Small sliding hiatal hernia.
[2018-12-07 13:22] VITALS: BP 131/77; PULSE 57; TEMP 98
[2018-12-07 18:35] VITALS: O2SAT 99
== END 2018-12-07 13:22 | disposition home or self-care (01) ==
LOC: C.ER 09:29
DX: R10.9 Unspecified abdominal pain (principal); I11.0 Hypertensive heart disease with heart failure; I50.9 Heart failure, unspecified; E78.00 Pure hypercholesterolemia, unspecified; Z95.5 Presence of coronary angioplasty implant and graft
CPT/HCPCS: 74176; 80053; 81001; 83690; 85025; 96361; 96374; 96375; 99284; J2270; J2405; J7030